=== PATIENT | female | born 1945 | race Caucasian/White ===

== ENCOUNTER 2020-02-12 15:59 | Outpatient (RCR) | payer MEDICARE, OTHER, SELFPAY ==
--- NOTE | 2020-02-12 18:00 | PT.OIE ---
Current Diagnoses Stiffness of unspecified hip, not elsewhere classified (02/12/20) Muscle weakness (generalized) (02/12/20) Stress incontinence (female) (male) (02/12/20) Abnormal posture (02/12/20) Visit Care Team Role Provider Type Cheyanne Barkley PA-C Primary Care Provider Non-Staff Specialty: Nursing Address: [address] [place] [address], [id number] Email: Anuja Caceres MD Attending Provider Non-Staff Referring Provider Specialty: Urology Address: [address] [place] [address], [id number] Email: Physical Therapy Initial Evaluation PT-OP-A Visit Information Start: 02/12/20 13:54 Freq: Status: Active Protocol: Document 02/12/20 16:06 LRN (Rec: 02/12/20 16:54 LRN [id number]) Out-Patient Physical Therapy Visit Information Visit Information Visit Type Initial Evaluation Visit Start Time 16:06 Visit Stop Time 16:53 Total Visit Minutes 47 Visit Number 1 Evaluation Information Evaluation Date 02/12/20 Precautions Precautions Previous bladder implant with removal 06/15/19. Bladder sling 2011 Hx of Botox injections Fell last year and hit side of head and balance has since worsened. Had biopsy at ankle 01/27/2020 to see what may be a reason for LOB problems. PT-OP-B Current Condition Start: 02/12/20 13:54 Freq: Status: Active Protocol: Document 02/12/20 16:06 LRN (Rec: 02/12/20 16:54 LRN [id number]) Current Condition History of Current Condition Onset Date 20 yrs ago Current Complaints Urinary and fecal incontinence requires daily diaper with 2- 3 pad changes History of Current Condition Leaks urgency 4x/day and 1 fecal accident 1x/week. 1 diaper a day with 2-3 pad changes in diaper /day for both urine and stool leakage. Just completed bladder medication of unknown name 1 week ago for urgency of urine with good results. The medication has prevented her urine & stool leakage since use. Problem with it is it gives her dry mouth even worse than what her usual medications cause. Prior Treatments and Tests See below Developmental History. Future Testing and Treatments Planned Dr. Caceres appt on 02/25/2020 . Developmental History Developmental History Has had bladder problem of not able to maintain urine control for past 20 yrs. Has had 2 children vaginally without complication. Had interstim in the back to prevent frequent urination ( temp implant 10/23/13) with permanent implant 11/06/2013, removal 06/15/19. BOTOX x 2 with last 05/10/13. Bladder sling with mesh 2011. Bladder surgery 2003 Treatment Goals Patient/Caregiver Goals Pt goal is to: 1) Complete referral by Dr. Caceres. 2) Take urgency away, 3) Take away the lack of control of bladder. Pt states she does not feel therapy will help because of her longstanding history of the problem. Prior Functional Status Baseline Function- ADL's Independent Baseline Function- Mobility Independent Baseline Function- Gait Ambs with SPC due to balance problem. Current Functional Impairments (Reported) Functional Limitations- ADL's Without medications requires 1 diaper daily 18/04. Functional Limitations- Mobility/Gait Ambulates with SPC Personal Factors Other Personal Factors That May Effect Asthma Therapy/Recovery Arthritis PT-OP-C Subjective Start: 02/12/20 13:54 Freq: Status: Active Protocol: Document 02/12/20 16:06 LRN (Rec: 02/12/20 16:54 LRN [id number]) Patient Questionnaires Pelvic Pain and Urgency/Frequency Patient Symptom Scale Pelvic Pain Score 111 PT-OP-G Mobility & Gait Start: 02/12/20 13:54 Freq: Status: Active Protocol: Document 02/12/20 16:06 LRN (Rec: 02/12/20 20:27 LRN [id number]) OP Gait Assessment Gait Gait Assistance Required: Independent Distance (Feet) 100 Able to Maintain Weight Bearing Status Yes During Gait Assistive Devices Assistive Device Straight Cane Gait Deviations General Gait Pattern Decreased Stride Length, Lateral Trunk Lean Factors Limiting Gait Function Factors Limiting Gait Function Poor Balance PT-OP-I Pelvic Floor Start: 02/12/20 13:54 Freq: Status: Active Protocol: Document 02/12/20 16:06 LRN (Rec: 02/12/20 20:27 LRN [id number]) Pelvic Floor Assessment Urine Pelvic Floor Surgery Yes Urinary Symptoms Urge Sensation,Prolapse Leakage Cause Cough,Urge Other Leakage Causes Unsure, pt wears adult brief 24/7 Leaks Per Day 4 Nocturia 0-1 Pads Used In 24 Hours 2-3 Urine Pad Type Maxi Pad,Depends Bowel Bowel Surgery No Bowel Symptoms Fecal Leakage Pelvic Clock Pelvic Clock Other Tender at Perineum Prolapse Cystocele Grade 1 Contraction Ability Voluntary Contraction Weak Voluntary Relaxation Weak Manual Muscle Testing Left 1 Manual Muscle Testing Right 0 Manual Muscle Testing Posterior 2 Muscle Endurance (Seconds) 1 Number of Quick Contractions In 10 3 Seconds Comments Pelvic Floor Comments Superficial contraction: Anteriorly Deep Contraction: Very weak, no pulling-in contraction felt . PT-OP-K Range of Motion Start: 02/12/20 13:54 Freq: Status: Active Protocol: Document 02/12/20 16:06 LRN (Rec: 02/12/20 16:54 LRN [id number]) Hip Goniometric Range of Motion Hip Right Passive Testing Position Supine Straight Leg Raise 90 Abduction 45 Internal Rotation 35 External Rotation 75 Left Passive Testing Position Supine Flexion w/Knee Flexed 0 Straight Leg Raise 90 Abduction 45 Internal Rotation 30 External Rotation 65 PT-OP-M Strength Start: 02/12/20 13:54 Freq: Status: Active Protocol: Document 02/12/20 16:06 LRN (Rec: 02/12/20 16:54 LRN [id number]) Trunk Strength Trunk Manual Muscle Testing Rotation Left 3 Fair Core Stabilization Pt unable to maintain core stability with R hip extension resistance applied. Comments Trunk strength was not formally tested. Hip Strength Hip Manual Muscle Testing Right Flexion (L2) 4+ Good+ Adduction 3 Fair External Rotation 4 Good Comments Hip strength 5/5 except those above Left Flexion (L2) 4 Good External Rotation 3 Fair Comments Hip strength 5/5 except those above PT-OP-Q Treatments Start: 02/12/20 13:54 Freq: Status: Active Protocol: Document 02/12/20 16:06 LRN (Rec: 02/12/20 16:54 LRN [id number]) Therapeutic Exercises Supine Exercises Kegels Supine Exercise Name Quick Flicks and Long holds Comments Primarily verbal cuing given Self-Care/Home Management Treatment Education Patient Education Home Exercise Program Other Education Issued handouts and instructions for completion of bladder diary. Activities Self-Care/Home Management Activities Issued & brief instructions given for Kegels. PT-OP-T Assessment and Plan Start: 05/19/20 13:54 Freq: Status: Active Protocol: Document 02/12/20 16:06 LRN (Rec: 02/12/20 16:54 LRN [id number]) Physical Therapy Assessment Rehab Potential Rehabilitation Potential Fair Evaluation Complexity Number of Personal Factors/Comorbidities 3 or More Number of Body Systems Impaired 4 or More Clinical Presentation at Evaluation Evolving Impairments Impairments Balance,Posture,ROM,Strength Other Impairments Incoordination of PF contraction with need for substitute muscles to obtain a contraction. Poor PF skin health causing redness and discomfort. Goals Seven Impairment Poor coordination of PF contraction with breathing Short Term Goal (STG) Pt will be able to perform a PF contraction with proper breathing at rest. STG Duration 04/01/20 Utility Manager Goal (LTG) Pt will be able to perform a PF contraction with proper breathing with transfers and voiding. LTG Duration 06/11/20 Six Impairment Decreased hip strength (R hip AD 3/5, L hip ER 3/5) Jail Goal (LTG) Pt will demonstrate improved hip strength generally to no less than 4/5 to improve stability of PF/core region. LTG Duration 06/11/20 Five Impairment Decreased Core stability Jail Goal (LTG) Pt will be able to maintain core stability with resistive strengthening of hips ( extension). LTG Duration 06/11/20 Four Impairment Pt not able to perform an isolated PF contraction(uses gluteals/abdominals) Short Term Goal (STG) Pt will be able to perform and isolated PF contraction with minimal use of abdominal muscle and independent of gluteal muscle contractions. STG Duration 03/18/20 Three Impairment Decreased PF endurance and strength of contractions Short Term Goal (STG) Pt will be able to hold a proper PF contraction 4 sec's or greater. STG Duration 04/01/20 Utility Manager Goal (LTG) Pt will be able to hold a PF contraction 10 secs or more and be able to decrease use of her adult diaper to use of urinary incontinence pads only . LTG Duration 06/11/20 Two Impairment Decreased PF strength Quick Flicks Short Term Goal (STG) Pt will be able to perform proper PF quick flick contractions. STG Duration 03/11/20 Jail Goal (LTG) Pt will demonstrated improved PF strength of at least 3/5 with ability to maintain continence with increased intra-abdominal pressure (ex - coughing, sneezing, transfers ). LTG Duration 06/11/20 One Impairment Pt lacks appropriate self care HEP Utility Manager Goal (LTG) Pt will be independent in ongoing self care HEP LTG Duration 06/11/20 Assessment Summary Assessment Pt presents with a poor coordinated PF contraction and weakness of her PF both in strength and endurance. She tends to try and substitute with her abdominals and gluteal muscles when saida her pelvic floor. She has a muscle imbalance of her hip muscles in strength and mobility and shows weakness of her trunk/core muscles. Her PF tissues are red and tender, probably due to constant wear of her adult diaper. I would recommend this be addressed. The pt would benefit from skilled physical therapy rehabilitation to decreased symptoms of urinary and fecal incontinence. There is good potential for the pt to improve in her PF strength and endurance; therefore I would recommend allowing her to complete her PF rehabilitation prior to Botox injections, in order to maximize her success in retraining the bladder. The pt may also benefit from a referral for a vestibular assessment and balance training, here at our clinic, for her balance dysfunction. Physical Therapy Plan Frequency and Duration Frequency of Treatment 1x/Week Plan of Care Start Date 02/12/20 Plan of Care End Date 06/11/20 Therapeutic Interventions Therapeutic Interventions Coordination Training,Gait Training,Home Exercise Program ,Manual Therapy,Neuromuscular Re-education,Patient/Caregiver Education,Self-Care/Home Management,Soft Tissue Mobilization,Therapeutic Exercises Modalities Biofeedback,Electric Stimulation Next Visit Focus/Plan Next Note Type Treatment Note Next Visit Plan Review of bladder diary with recommended modifications as appropriate, PF contraction training without substitute ms and proper breathing, Discuss proper body mechanics and breathing techniques, Training for proper PF contraction coordination/ sequencing, Hip ROM/Strengthening HEP.
--- NOTE | 2020-05-06 09:29 | PT.OPDS ---
Current Diagnoses Stiffness of unspecified hip, not elsewhere classified (02/12/20) Muscle weakness (generalized) (02/12/20) Stress incontinence (female) (male) (02/12/20) Abnormal posture (02/12/20) Visit Care Team Role Provider Type Cheyanne Barkley PA-C Primary Care Provider Non-Staff Specialty: Nursing Address: [address] [place] [address], [id number] Email: Anuja Caceres MD Attending Provider Non-Staff Referring Provider Specialty: Urology Address: [address] [place] [address], [phone] Email: Visit Number Visit Number 1 Discharge Summary PT-OP-B Current Condition Start: 02/12/20 13:54 Freq: Status: Active Protocol: Document 02/12/20 16:06 LRN (Rec: 02/12/20 16:54 LRN [id number]) Current Condition History of Current Condition Onset Date 20 yrs ago Current Complaints Urinary and fecal incontinence requires daily diaper with 2- 3 pad changes History of Current Condition Leaks urgency 4x/day and 1 fecal accident 1x/week. 1 diaper a day with 2-3 pad changes in diaper /day for both urine and stool leakage. Just completed bladder medication of unknown name 1 week ago for urgency of urine with good results. The medication has prevented her urine & stool leakage since use. Problem with it is it gives her dry mouth even worse than what her usual medications cause. Prior Treatments and Tests See below Developmental History. Future Testing and Treatments Planned Dr. Caceres appt on 02/25/2020 . Developmental History Developmental History Has had bladder problem of not able to maintain urine control for past 20 yrs. Has had 2 children vaginally without complication. Had interstim in the back to prevent frequent urination ( temp implant 10/23/13) with permanent implant 11/06/2013, removal 06/15/19. BOTOX x 2 with last 05/10/13. Bladder sling with mesh 2011. Bladder surgery 2003 Treatment Goals Patient/Caregiver Goals Pt goal is to: 1) Complete referral by Dr. Caceres. 2) Take urgency away, 3) Take away the lack of control of bladder. Pt states she does not feel therapy will help because of her longstanding history of the problem. Prior Functional Status Baseline Function- ADL's Independent Baseline Function- Mobility Independent Baseline Function- Gait Ambs with SPC due to balance problem. Current Functional Impairments (Reported) Functional Limitations- ADL's Without medications requires 1 diaper daily 24/7. Functional Limitations- Mobility/Gait Ambulates with SPC Personal Factors Other Personal Factors That May Effect Asthma Therapy/Recovery Arthritis PT-OP-C Subjective Start: 02/12/20 13:54 Freq: Status: Active Protocol: Document 02/12/20 16:06 LRN (Rec: 02/12/20 16:54 LRN [id number]) Patient Questionnaires Pelvic Pain and Urgency/Frequency Patient Symptom Scale Pelvic Pain Score 111 PT-OP-G Mobility & Gait Start: 02/12/20 13:54 Freq: Status: Active Protocol: Document 02/12/20 16:06 LRN (Rec: 02/12/20 20:27 LRN [id number]) OP Gait Assessment Gait Gait Assistance Required: Independent Distance (Feet) 100 Able to Maintain Weight Bearing Status Yes During Gait Assistive Devices Assistive Device Straight Cane Gait Deviations General Gait Pattern Decreased Stride Length, Lateral Trunk Lean Factors Limiting Gait Function Factors Limiting Gait Function Poor Balance PT-OP-I Pelvic Floor Start: 02/12/20 13:54 Freq: Status: Active Protocol: Document 02/12/20 16:06 LRN (Rec: 02/12/20 20:27 LRN [id number]) Pelvic Floor Assessment Urine Pelvic Floor Surgery Yes Urinary Symptoms Urge Sensation,Prolapse Leakage Cause Cough,Urge Other Leakage Causes Unsure, pt wears adult brief 24/7 Leaks Per Day 4 Nocturia 0-1 Pads Used In 24 Hours 2-3 Urine Pad Type Maxi Pad,Depends Bowel Bowel Surgery No Bowel Symptoms Fecal Leakage Pelvic Clock Pelvic Clock Other Tender at Perineum Prolapse Cystocele Grade 1 Contraction Ability Voluntary Contraction Weak Voluntary Relaxation Weak Manual Muscle Testing Left 1 Manual Muscle Testing Right 0 Manual Muscle Testing Posterior 2 Muscle Endurance (Seconds) 1 Number of Quick Contractions In 10 3 Seconds Comments Pelvic Floor Comments Superficial contraction: Anteriorly Deep Contraction: Very weak, no pulling-in contraction felt . PT-OP-K Range of Motion Start: 02/12/20 13:54 Freq: Status: Active Protocol: Document 02/12/20 16:06 LRN (Rec: 02/12/20 16:54 LRN [id number]) Hip Goniometric Range of Motion Hip Right Passive Testing Position Supine Straight Leg Raise 90 Abduction 45 Internal Rotation 35 External Rotation 75 Left Passive Testing Position Supine Flexion w/Knee Flexed 0 Straight Leg Raise 90 Abduction 45 Internal Rotation 30 External Rotation 65 PT-OP-M Strength Start: 02/12/20 13:54 Freq: Status: Active Protocol: Document 02/12/20 16:06 LRN (Rec: 02/12/20 16:54 LRN [id number]) Trunk Strength Trunk Manual Muscle Testing Rotation Left 3 Fair Core Stabilization Pt unable to maintain core stability with R hip extension resistance applied. Comments Trunk strength was not formally tested. Hip Strength Hip Manual Muscle Testing Right Flexion (L2) 4+ Good+ Adduction 3 Fair External Rotation 4 Good Comments Hip strength 5/5 except those above Left Flexion (L2) 4 Good External Rotation 3 Fair Comments Hip strength 5/5 except those above PT-OP-T Assessment and Plan Start: 02/12/20 13:54 Freq: Status: Active Protocol: Document 05/06/20 09:28 MB (Rec: 05/06/20 09:29 MB [id number]) Physical Therapy Plan Discharge Physical Therapy Discharge Reasons No Longer Attending PT Discharge Comments Front office left message for pt to schedule and pt has not called clinic in 3 months. Will d/c PT. Pt should return to doctor for new order if she wishes to con't with PT in the future.
== END 2020-05-06 12:59 ==
LOC: PHYS 15:59
PROVIDERS: PCP Physician Assistant; Referring Provider Urology; Visit Provider Urology
DX: N39.3 Stress incontinence (female) (male) (principal); M62.81 Muscle weakness (generalized); R29.3 Abnormal posture; M25.659 Stiffness of unspecified hip, not elsewhere classified
CPT/HCPCS: 97162; 97535

== ENCOUNTER → 2020-04-23 14:52 | Outpatient (CLI) | payer MEDICARE, OTHER, SELFPAY | PROVIDERS: PCP Physician Assistant; Referring Provider Physician Assistant; Visit Provider Family Medicine | DX: S81.802A Unspecified open wound, left lower leg, initial encounter (principal); R60.0 Localized edema; D89.9 Disorder involving the immune mechanism, unspecified | CPT/HCPCS: 11042; 87070; 87075; 87205; 99203; 99213 ==

== ENCOUNTER → 2020-04-29 14:11 | Outpatient (CLI) | payer MEDICARE, OTHER, SELFPAY | PROVIDERS: PCP Physician Assistant; Referring Provider Physician Assistant; Visit Provider Family Medicine | DX: T81.31XA Disruption of external operation (surgical) wound, not elsewhere classified, initial encounter (principal); S91.302A Unspecified open wound, left foot, initial encounter | CPT/HCPCS: 97607 ==

== ENCOUNTER → 2020-05-01 10:05 | Outpatient (CLI) | payer MEDICARE, OTHER, SELFPAY | PROVIDERS: PCP Physician Assistant; Referring Provider Physician Assistant; Visit Provider Family Medicine | DX: I87.312 Chronic venous hypertension (idiopathic) with ulcer of left lower extremity (principal); L97.822 Non-pressure chronic ulcer of other part of left lower leg with fat layer exposed; D89.9 Disorder involving the immune mechanism, unspecified | CPT/HCPCS: 11042; 87070; 87075; 87205; 97607 ==

== ENCOUNTER → 2020-05-05 10:58 | Outpatient (CLI) | payer MEDICARE, OTHER, SELFPAY | PROVIDERS: PCP Physician Assistant; Referring Provider Physician Assistant; Visit Provider Family Medicine | DX: I87.2 Venous insufficiency (chronic) (peripheral) (principal); L97.822 Non-pressure chronic ulcer of other part of left lower leg with fat layer exposed | CPT/HCPCS: 99213 ==

== ENCOUNTER → 2020-05-08 11:14 | Outpatient (CLI) | payer MEDICARE, OTHER, SELFPAY | PROVIDERS: PCP Physician Assistant; Referring Provider Physician Assistant; Visit Provider Family Medicine | DX: I87.312 Chronic venous hypertension (idiopathic) with ulcer of left lower extremity (principal); L97.823 Non-pressure chronic ulcer of other part of left lower leg with necrosis of muscle; D89.9 Disorder involving the immune mechanism, unspecified | CPT/HCPCS: 11043; 97605 ==

== ENCOUNTER → 2020-05-12 10:56 | Outpatient (CLI) | payer MEDICARE, OTHER, SELFPAY | PROVIDERS: PCP Physician Assistant; Referring Provider Physician Assistant; Visit Provider Family Medicine | DX: I87.2 Venous insufficiency (chronic) (peripheral) (principal); L97.823 Non-pressure chronic ulcer of other part of left lower leg with necrosis of muscle | CPT/HCPCS: 97607 ==

== ENCOUNTER → 2020-05-15 09:35 | Outpatient (CLI) | payer MEDICARE, OTHER, SELFPAY | PROVIDERS: PCP Physician Assistant; Referring Provider Physician Assistant; Visit Provider Family Medicine | DX: I87.312 Chronic venous hypertension (idiopathic) with ulcer of left lower extremity (principal); L97.821 Non-pressure chronic ulcer of other part of left lower leg limited to breakdown of skin; D89.9 Disorder involving the immune mechanism, unspecified | CPT/HCPCS: 11042 ==

== ENCOUNTER → 2020-05-19 09:39 | Outpatient (CLI) | payer MEDICARE, OTHER, SELFPAY | PROVIDERS: PCP Physician Assistant; Referring Provider Physician Assistant; Visit Provider Family Medicine | DX: L97.825 Non-pressure chronic ulcer of other part of left lower leg with muscle involvement without evidence of necrosis (principal); I87.2 Venous insufficiency (chronic) (peripheral) | CPT/HCPCS: 97607 ==

== ENCOUNTER → 2020-05-22 12:16 | Outpatient (CLI) | payer MEDICARE, OTHER, SELFPAY | PROVIDERS: PCP Physician Assistant; Referring Provider Physician Assistant; Visit Provider Family Medicine | DX: I87.312 Chronic venous hypertension (idiopathic) with ulcer of left lower extremity (principal); L97.821 Non-pressure chronic ulcer of other part of left lower leg limited to breakdown of skin; D89.9 Disorder involving the immune mechanism, unspecified | CPT/HCPCS: 15271; 97605; Q4110 ==

== ENCOUNTER → 2020-05-29 11:45 | Outpatient (CLI) | payer MEDICARE, OTHER, SELFPAY | PROVIDERS: PCP Physician Assistant; Referring Provider Physician Assistant; Visit Provider Family Medicine | DX: I87.312 Chronic venous hypertension (idiopathic) with ulcer of left lower extremity (principal); L97.821 Non-pressure chronic ulcer of other part of left lower leg limited to breakdown of skin; D89.9 Disorder involving the immune mechanism, unspecified | CPT/HCPCS: 97607; 99212; 99213 ==

== ENCOUNTER → 2020-06-04 10:19 | Outpatient (CLI) | payer MEDICARE, OTHER, SELFPAY | PROVIDERS: PCP Physician Assistant; Referring Provider Physician Assistant; Visit Provider Family Medicine | DX: I87.312 Chronic venous hypertension (idiopathic) with ulcer of left lower extremity (principal); L97.821 Non-pressure chronic ulcer of other part of left lower leg limited to breakdown of skin; D89.9 Disorder involving the immune mechanism, unspecified | CPT/HCPCS: 15271; 87070; 87075; 87077; 87147; 87186; 87205; 97605; Q4137 ==

== ENCOUNTER → 2020-06-10 11:54 | Outpatient (CLI) | payer MEDICARE, OTHER, SELFPAY | PROVIDERS: PCP Physician Assistant; Referring Provider Physician Assistant; Visit Provider Family Medicine | DX: I87.312 Chronic venous hypertension (idiopathic) with ulcer of left lower extremity (principal); L97.821 Non-pressure chronic ulcer of other part of left lower leg limited to breakdown of skin; D89.9 Disorder involving the immune mechanism, unspecified; B95.7 Other staphylococcus as the cause of diseases classified elsewhere | CPT/HCPCS: 15271; 97605; 99214; Q4137 ==

== ENCOUNTER → 2020-06-17 13:09 | Outpatient (CLI) | payer MEDICARE, OTHER, SELFPAY | PROVIDERS: PCP Physician Assistant; Referring Provider Physician Assistant; Visit Provider Family Medicine | DX: I87.312 Chronic venous hypertension (idiopathic) with ulcer of left lower extremity (principal); L97.821 Non-pressure chronic ulcer of other part of left lower leg limited to breakdown of skin; D89.9 Disorder involving the immune mechanism, unspecified | CPT/HCPCS: 15271; 97607; Q4137 ==

== ENCOUNTER → 2020-06-27 11:05 | Outpatient (CLI) | payer MEDICARE, OTHER, SELFPAY | PROVIDERS: PCP Physician Assistant; Referring Provider Physician Assistant; Visit Provider Family Medicine | DX: I87.2 Venous insufficiency (chronic) (peripheral) (principal); L97.821 Non-pressure chronic ulcer of other part of left lower leg limited to breakdown of skin | CPT/HCPCS: 97607 ==

== ENCOUNTER → 2020-07-03 15:51 | Outpatient (CLI) | payer MEDICARE, OTHER, SELFPAY | PROVIDERS: PCP Physician Assistant; Referring Provider Physician Assistant; Visit Provider Family Medicine | DX: I87.312 Chronic venous hypertension (idiopathic) with ulcer of left lower extremity (principal); L97.821 Non-pressure chronic ulcer of other part of left lower leg limited to breakdown of skin; D89.9 Disorder involving the immune mechanism, unspecified | CPT/HCPCS: 11042; 97607 ==

== ENCOUNTER → 2020-07-11 12:03 | Outpatient (CLI) | payer MEDICARE, OTHER, SELFPAY | PROVIDERS: PCP Physician Assistant; Referring Provider Physician Assistant; Visit Provider Family Medicine | DX: I87.2 Venous insufficiency (chronic) (peripheral) (principal); L97.821 Non-pressure chronic ulcer of other part of left lower leg limited to breakdown of skin | CPT/HCPCS: 99212 ==

== ENCOUNTER → 2020-07-23 11:27 | Outpatient (CLI) | payer MEDICARE, OTHER, SELFPAY | PROVIDERS: PCP Physician Assistant; Referring Provider Physician Assistant; Visit Provider Family Medicine | DX: I87.312 Chronic venous hypertension (idiopathic) with ulcer of left lower extremity (principal); L97.821 Non-pressure chronic ulcer of other part of left lower leg limited to breakdown of skin; D89.9 Disorder involving the immune mechanism, unspecified | CPT/HCPCS: 97597; 99213 ==

== ENCOUNTER → 2020-07-30 15:10 | Outpatient (CLI) | payer MEDICARE, OTHER, SELFPAY | PROVIDERS: PCP Physician Assistant; Referring Provider Physician Assistant; Visit Provider Family Medicine | DX: I87.312 Chronic venous hypertension (idiopathic) with ulcer of left lower extremity (principal); D89.9 Disorder involving the immune mechanism, unspecified; R60.0 Localized edema | CPT/HCPCS: 99213 ==

== ENCOUNTER → 2021-04-01 09:26 | Outpatient (CLI) | payer MEDICARE, OTHER, SELFPAY | PROVIDERS: PCP Physician Assistant; Referring Provider Physician Assistant; Visit Provider Family Medicine | DX: I87.2 Venous insufficiency (chronic) (peripheral) (principal); Z87.891 Personal history of nicotine dependence | CPT/HCPCS: 99212; 99213 ==

== ENCOUNTER → 2021-12-29 12:12 | Outpatient (CLI) | payer MEDICARE, OTHER, SELFPAY ==
--- NOTE | 2021-12-29 | DI.MRI.S_ITS ---
PROCEDURE: MR HEAD/BRAIN WO/W CON INDICATIONS: Trauma, pain TECHNIQUE: Multiplanar multisequential MRI images of the brain were obtained with and without intravenous contrast. COMPARISON: Outside Film, MR, MR BRAIN WITHOUT CONTRAST, 01/31/2020, 7:33. [facility], MR, MR BRAIN WITH CONTRAST, 03/17/2020, 10:12. FINDINGS: Cerebrum, Cerebellum and Brainstem: Moderate cerebral and cerebellar volume loss as well as moderate multifocal hyperintensities in the deep and subcortical white matter present. The diffusion sequence is normal without evidence of acute infarct. No intracranial hemorrhage, mass lesion or midline shift. Basal cisterns and foramen magnum contain appropriate anatomy and vascular flow voids. No evidence of dural or leptomeningeal thickening. Ventricles: Appropriate in size and position. No hydrocephalus. Skull Base: The bony sella, pituitary gland and infundibulum unremarkable. Clivus and craniovertebral relationships are appropriate. Visualized portions of the seventh and eighth cranial nerve complexes and internal auditory canals are within normal limits. Scalp and Calvarium: The scalp is unremarkable. Underlying calvarium has an appropriate marrow signal. Paranasal Sinuses: Visualized portions of the paranasal sinuses are clear. Mastoids: Unremarkable as visualized. No mastoid effusion present. Orbits: The orbits, globes and ocular muscles are unremarkable. IMPRESSION: Moderate atrophy and chronic ischemic change without acute infarct, hemorrhage or mass lesion. No change from the prior exam Approved by: Perico Sanz M.D. on 12/29/2021 at 14:23
== END ==
PROVIDERS: PCP Family Medicine; Referring Provider Family Medicine; Visit Provider Family Medicine
DX: S06.0X0A Concussion without loss of consciousness, initial encounter (principal); R27.9 Unspecified lack of coordination
CPT/HCPCS: 70553; A9579

== ENCOUNTER 2022-12-09 10:16 | Inpatient (IN) | payer MEDICARE, OTHER, SELFPAY ==
[2022-12-09] VITALS (24 sets, daily range): BP systolic 137–191; BP diastolic 67–86; PULSE 57–65; RESP 8–34; TEMP 36.4–37.1; O2SAT 91–98; BMI 26.4; BMI 25.7
--- NOTE | 2022-12-09 10:49 | DI.CT.S_ITS ---
PROCEDURE: CT ANGIO HEAD AND NECK INDICATIONS: dizziness TECHNIQUE: Pre-contrast 4.5 mm thick sections acquired from the foramen magnum to the vertex. After the administration of intravenous contrast, 1 mm thick sections acquired from the aortic arch through the [place]. Post-contrast 4.5 mm thick sections then re-acquired from the foramen magnum to the vertex. 3-dimensional fkawrbp-uyvrkrfjr-uflvinsdng (MIP) and/or volume rendering reformats were acquired of the central intracranial vasculature and neck separately. For radiation dose reduction, the following was used: automated exposure control, adjustment of mA and/or kV according to patient size. COMPARISON: None. FINDINGS: Image quality: Good CSF spaces: Basal cisterns are patent. Lateral ventricles are symmetric. Volume: Vascular calcifications. Periventricular white matter disease is commonly seen with chronic microangiopathy. Volume loss is present. These findings are [id number] Brain: No intracranial hemorrhage. Hyde-white differentiation is grossly maintained. Craniofacial structures: No displaced fracture. Sinuses are clear. Orbits are intact. HEAD ANGIOGRAPHY Anterior circulation: ICAs: Mild calcifications of the cavernous and supraclinoid carotid arteries. ACAs: Normal and symmetric MCAs: Normal and symmetric AComm: No aneurysm Venous sinuses: patent Posterior circulation: Dominance: Slightly left dominant Vertebral arteries: No stenosis or occlusion. No aneurysm. Basilar artery: Diminutive appearing basilar artery, particularly near the tip. There is minimal flow present. This was seen on prior imaging. PComms: Supplied primarily by posterior communicating arteries. parachute supervisor: Unremarkable NECK ANGIOGRAPHY Aortic arch and subclavian arteries: Mild atherosclerotic disease CCAs: No stenosis, occlusion, or aneurysm. ICA origins (by NASCET criteria): Mild bilateral ICA origin calcifications without significant narrowing (less than 50%) ICAs: No stenosis, occlusion or aneurysm. ECAs: Origins are patent. Vertebral arteries: Moderate narrowing at the left vertebral artery origin. Soft tissues: There is a prominent lymph node adjacent to the right upper esophagus. There is also mild nonspecific esophageal wall thickening partially seen. There are parotid calcifications of uncertain etiology. Lung apices: No pneumothorax Bones: Degenerative changes. IMPRESSION: No acute intracranial abnormality on non-contrast head CT. CTA without large vessel occlusion or high-grade stenosis. Suspected chronic diminutive appearance of the distal basilar artery secondary to predominant supply of the bilateral parachute supervisor. This was seen in 2021 imaging. Hfny-sj-jflpuycv atherosclerotic disease. Moderate narrowing of the left vertebral artery origin. If there is high concern for infarct, recommend MRI. Any quantitative measurements of stenosis were performed using NASCET criteria. Dictated by: Dimitri Winters M.D. on 12/09/2022 at 11:40 Approved by: Dimitri Winters M.D. on 12/09/2022 at 11:49
--- NOTE | 2022-12-09 10:50 | ED.DIZZY ---
HPI - Dizziness General Chief Complaint: Dizziness Stated Complaint: Vertigo Time Seen by Provider: 12/09/22 10:48 Source: patient and EMS Mode of arrival: EMS History of Present Illness HPI Narrative: Patient brought in by ambulance from otolaryngology office of Dr. Gilmer Kraus. Patient has history of vertigo. Has had dizziness for the past month daily. She sees him for this complaint. However she went to bed last night with her usual vertigo dizziness. This morning however she felt like she was ?detached ?from her body. There is not been any complaints of slurred speech facial droop or limb numbness tingling or weakness from herself or her . In the past month or last night or today. Prior history of stroke. Patient in no distress at this time. Fast exam is negative Related Data Home Medications Medication Instructions Recorded Confirmed ALBUTEROL (PROVENTIL INHALER) 0.09 mg IH PRN ##0 12/13/11 12/09/22 budesonide-formoterol HFA 160 1 puff INH PRN ##0 12/13/11 12/09/22 mcg-4.5 mcg/actuation aerosol inhaler (Symbicort) trazodone 100 mg tablet 100 mg PO HS ##0 12/15/11 12/09/22 [VITAMIN D ] 2,000 iu PO QDAY ##0 11/17/12 12/10/22 ibuprofen 800 mg tablet 800 mg PO PRN ##0 11/17/12 12/09/22 Previous Rx's Medication Instructions Recorded aspirin 81 mg tablet,delayed 81 mg PO DAILY #30 tabs 12/10/22 release atorvastatin 20 mg tablet (Lipitor) 40 mg PO BEDTIME #60 tabs 12/10/22 cephalexin 500 mg capsule 500 mg PO Q8H #15 caps 12/10/22 meclizine 12.5 mg tablet 12.5 mg PO Q6HR #60 tabs 12/10/22 Allergies Allergy/AdvReac Type Severity Reaction Status Date / Time Sulfa (Sulfonamide Allergy Verified 12/09/22 10:17 Antibiotics) Review of Systems Review of Systems Narrative: GENERAL: negative chills, fatigue, malaise, fever, sweats. HEENT: negative sinus pain, ear pain, sore throat, positive hearing changes RESPIRATORY: negative dyspnea, cough CARDIOVASCULAR: negative chest pain, palpitations GASTROINTESTINAL: negative nausea, vomiting, abdominal pain : negative dysuria, frequency, hematuria MUSCULOSKELETAL: negative muscle or bony pain SKIN: negative rash, skin lesions NEUROLOGIC: negative weakness, numbness, positive dizziness negative slurred speech negative facial droop ROS Unobtainable: All systems reviewed & are unremarkable except as noted in HPI and below Patient History Family History (Updated 12/09/22 @ 16:53 by Luis John MD) Other Family history of cerebrovascular accident (CVA) in father Social History household members: spouse Smoking Status: Never smoker alcohol intake: current Smoking Status: Never smoker alcohol intake frequency: 0-2 drinks per day Substance Use Type: does not use Exam Narrative Exam Narrative: GENERAL: in no distress, not toxic not dyspneic HEAD: Normocephalic. EYES: Pupils equal round there is horizontal nystagmus ENT: Mucous membranes moist. NECK: Trachea midline. CARDIOVASCULAR: Regular rate and rhythm without murmurs RESPIRATORY: Clear to auscultation. Breath sounds equal bilaterally. No wheezes, rales, or rhonchi. GASTROINTESTINAL: Abdomen soft, non-tender EXTREMITIES: No gross deformities. BACK: No flank tenderness. NEURO: AOx4. Fast exam is negative. Clear speech no facial droop light touch intact bilateral face hands and feet. Strong equal overhauler. Negative pronator drift. Finger-nose intact. Elevate each leg independently off the bed SKIN: Warm and dry PSYCH: Not anxious, is cooperative Initial Vital Signs Initial Vital Signs: Vital Signs Temperature 97.6 F 12/09/22 10:18 Pulse Rate 61 12/09/22 10:18 Respiratory Rate 14 12/09/22 10:18 Blood Pressure 191/86 H 12/09/22 10:18 Pulse Oximetry 98 12/09/22 10:18 Oxygen Delivery Method Room Air 12/09/22 10:18 Scores NIH Stroke Scale Level of Conciousness: Alert, keenly responsive Ask month/age: Answers both questions correctly. Open/close eyes, close hand: Performs both tasks correctly Best gaze horizontal: Normal Visual montejo: No visual loss Facial palsy: Normal symetrical movement Left arm drift: No drift for full 10 sec Right arm drift: No drift for full 10 sec Left leg drift: No drift for full 5 sec Right leg drift: No drift for full 5 sec Limb ataxia: Absent Sensory on face/arms/legs: Normal, no sensory loss Best language: No aphasia, normal Dysarthria: Normal Extinction or inattention: No abnormality Total NIH Stroke scale score: 0 Course Orders Ordered: Discontinued Medications Acetaminophen (Acetaminophen 325 Mg Tablet) 650 mg PO Q6H PRN PRN Reason: Fever/Mild Pain (1-3) Al Hydrox/Mg Hydrox/Simethicone (Mag Hydrox/Alum/Simeth 30 Ml Udc) 30 ml PO Q6HR PRN PRN Reason: Dyspepsia Aspirin (Aspirin Ec 81 Mg Tablet) 81 mg PO DAILY [facility] Last Admin: 12/10/22 09:10 Dose: 81 mg Documented By: AA Aspirin (Aspirin Ec 325 Mg Tablet) 325 mg PO NOW ONE Stop: 12/09/22 21:43 Last Admin: 12/09/22 21:56 Dose: 325 mg Documented By: AC Atorvastatin Calcium (Atorvastatin 20 Mg Tablet) 80 mg PO BEDTIME [facility] Last Admin: 12/09/22 21:38 Dose: 80 mg Documented By: AC Cephalexin HCl (Cephalexin 250 Mg Capsule) 500 mg PO NOW ONE Stop: 12/09/22 13:45 Last Admin: 12/09/22 15:15 Dose: 500 mg Documented By: LILIANA Clopidogrel Bisulfate (Clopidogrel 75 Mg Tablet) 75 mg PO DAILY [facility] Last Admin: 12/10/22 09:10 Dose: 75 mg Documented By: GAURANG Docusate Sodium (Docusate 100 Mg Capsule) 100 mg PO BID [facility] Last Admin: 12/10/22 09:10 Dose: 100 mg Documented By: Admin: 12/09/22 21:38 Dose: 100 mg Documented By: AC Heparin Sodium (Porcine) (Heparin 5,000 Unit/Ml Vial) 5,000 unit SUBCUT BID [facility] Last Admin: 12/10/22 09:10 Dose: 5,000 unit Documented By: Admin: 12/09/22 21:38 Dose: 5,000 unit Documented By: AC Ceftriaxone Sodium 1,000 mg/ (Sodium Chloride) 100 mls @ 200 mls/hr IV Q24H [facility] Last Admin: 12/10/22 16:50 Dose: Not Given Documented By: Infusion: 12/09/22 17:40 Dose: 0 mls/hr Documented By: Admin: 12/09/22 17:07 Dose: 200 mls/hr Documented By: HCW Lorazepam (Lorazepam 2 Mg/Ml Inj) 1 mg IV NOW ONE Stop: 12/09/22 12:27 Last Admin: 12/09/22 14:21 Dose: 1 mg Documented By: LILIANA Meclizine HCl (Meclizine Hcl 12.5 Mg Tablet) 12.5 mg PO Q6HR [facility] Last Admin: 12/10/22 13:04 Dose: 12.5 mg Documented By: Admin: 12/10/22 06:33 Dose: 12.5 mg Documented By: Admin: 12/10/22 00:41 Dose: 12.5 mg Documented By: Admin: 12/09/22 18:00 Dose: 12.5 mg Documented By: OLU Naloxone HCl (Naloxone 0.4 Mg/Ml Vial) 0.2 mg IV Q2MIN PRN PRN Reason: Opiate Reversal Ondansetron HCl (Ondansetron 4 Mg/2 Ml Inj) 4 mg IV NOW ONE Stop: 12/09/22 10:49 Last Admin: 12/09/22 11:09 Dose: 4 mg Documented By: HÉCTOR Ondansetron HCl (Ondansetron 4 Mg/2 Ml Inj) 4 mg IV Q8HR PRN PRN Reason: Nausea And Vomiting Vital Signs Vital signs: Vital Signs - 8 hr 12/09/22 10:18 12/09/22 10:20 12/09/22 10:21 Temperature 97.6 F Pulse Rate 61 60 Respiratory Rate 14 11 L Blood Pressure 191/86 H Pulse Oximetry 98 98 97 Oxygen Delivery Method Room Air 12/09/22 10:21 12/09/22 10:30 12/09/22 11:00 Temperature Pulse Rate 61 61 Respiratory Rate 18 26 H Blood Pressure 191/86 H Pulse Oximetry 98 91 Oxygen Delivery Method Room Air 12/09/22 11:03 12/09/22 11:03 12/09/22 11:10 Temperature Pulse Rate 62 59 L Respiratory Rate 17 15 Blood Pressure 172/77 H Pulse Oximetry 96 96 Oxygen Delivery Method 12/09/22 11:10 12/09/22 11:30 12/09/22 12:00 Temperature Pulse Rate 61 59 L Respiratory Rate 18 19 Blood Pressure 148/67 H Pulse Oximetry 97 Oxygen Delivery Method 12/09/22 12:30 12/09/22 13:00 12/09/22 13:30 Temperature Pulse Rate 63 57 L 59 L Respiratory Rate 8 L 14 Blood Pressure Pulse Oximetry Oxygen Delivery Method 12/09/22 14:00 12/09/22 14:17 12/09/22 14:17 Temperature Pulse Rate 60 64 Respiratory Rate 16 19 Blood Pressure 141/73 H Pulse Oximetry 97 Oxygen Delivery Method MDM - Dizziness Lab Data 12/09/22 10:28 12/09/22 17:14 Labs: Lab Results 12/09/22 12/09/22 12/09/22 Range/Units 10:28 10:28 10:28 WBC 5.9 (4.5-11.0) X10^3/uL RBC 4.57 (4.0-5.2) X10^6/uL Hgb 15.0 (12.0-16.0) g/dL Hct 44.1 (36-46) % MCV 96.5 (80-100) fL MCH 32.7 (26-34) PG MCHC 33.9 (30-36) % RDW 12.9 (11.6-14.8) % Plt Count 107 L (150-400) X10^3/uL Neut % (Auto) 65.3 (50-75) % Lymph % (Auto) 22.5 L (25-40) % [place] % (Auto) 6.9 (3-14) % Eos % (Auto) 4.8 H (2-4) % Baso % (Auto) 0.5 (0-2) % Neut # (Auto) 3800 (5983-9626) /uL Lymph # (Auto) 1300 (7741-1755) /uL [place] # (Auto) 400 (0-900) /uL Eos # (Auto) 300 (0-450) /uL Baso # (Auto) 0 (0-100) /uL PT 10.7 (10.1-12.7) SECONDS INR 0.9 (0.9-1.3) APTT 30 (26-36) SECONDS Sodium 136 L (137-145) mmol/L Potassium 4.0 (3.4-5.1) mmol/L Chloride 100 (98-107) mmol/L Carbon Dioxide 31 (22-32) mmol/L BUN 13 (7-17) mg/dL Creatinine 0.65 (0.52-1.04) mg/dL Estimated GFR > 60 (>60) mL/min BUN/Creatinine Ratio 20.0 (6-22) Glucose 92 (80-110) mg/dL Calcium 8.9 (8.4-10.2) mg/dL Total Bilirubin 0.7 (0.2-1.3) mg/dL AST 41 H (14-36) IU/L ALT 37 H (<35) IU/L Alkaline Phosphatase 158 H (38-126) U/L Total Creatine Kinase 38 (30-135) U/L CK-MB (CK-2) TNP CK-MB (CK-2) Rel Index TNP Troponin I < 0.012 (0.01-0.034) ng/mL Total Protein 6.9 (6.3-8.2) g/dL Albumin 4.2 (3.5-5.0) g/dL Globulin 2.7 (1.7-4.1) g/dL Albumin/Globulin Ratio 1.6 (1.0-2.8) Urine Color Urine Appearance Urine pH (4.5-8.0) Ur Specific [place] (1.000-1.035) Urine Protein (Negative) Urine Glucose (UA) (Negative) g/dL Urine Ketones (NEGATIVE) Urine Occult Blood (Negative) Urine Nitrate (Negative) Urine Bilirubin (NEGATIVE) Urine Urobilinogen (0.2) E.U./dL Ur Leukocyte Esterase (NEGATIVE) Urine RBC (0-5/HPF) Urine WBC (0-5/HPF) Ur Squamous Epith Cells (0-5/HPF) Urine Bacteria (None) Ur Culture Indicated? SARS-CoV-2 (PCR) (Negative) Influenza A (RT-PCR) (NEGATIVE) Influenza B (RT-PCR) (NEGATIVE) RSV (PCR) (Negative) 12/09/22 12/09/22 Range/Units 11:56 12:30 WBC (4.5-11.0) X10^3/uL RBC (4.0-5.2) X10^6/uL Hgb (12.0-16.0) g/dL Hct (36-46) % MCV (80-100) fL MCH (26-34) PG MCHC (30-36) % RDW (11.6-14.8) % Plt Count (150-400) X10^3/uL Neut % (Auto) (50-75) % Lymph % (Auto) (25-40) % [place] % (Auto) (3-14) % Eos % (Auto) (2-4) % Baso % (Auto) (0-2) % Neut # (Auto) (2791-5612) /uL Lymph # (Auto) (3599-8025) /uL [place] # (Auto) (0-900) /uL Eos # (Auto) (0-450) /uL Baso # (Auto) (0-100) /uL PT (10.1-12.7) SECONDS INR (0.9-1.3) APTT (26-36) SECONDS Sodium (137-145) mmol/L Potassium (3.4-5.1) mmol/L Chloride (98-107) mmol/L Carbon Dioxide (22-32) mmol/L BUN (7-17) mg/dL Creatinine (0.52-1.04) mg/dL Estimated GFR (>60) mL/min BUN/Creatinine Ratio (6-22) Glucose (80-110) mg/dL Calcium (8.4-10.2) mg/dL Total Bilirubin (0.2-1.3) mg/dL AST (14-36) IU/L ALT (<35) IU/L Alkaline Phosphatase (38-126) U/L Total Creatine Kinase (30-135) U/L CK-MB (CK-2) CK-MB (CK-2) Rel Index Troponin I (0.01-0.034) ng/mL Total Protein (6.3-8.2) g/dL Albumin (3.5-5.0) g/dL Globulin (1.7-4.1) g/dL Albumin/Globulin Ratio (1.0-2.8) Urine Color Yellow Urine Appearance Clear Urine pH 7.5 (4.5-8.0) Ur Specific [place] 1.010 (1.000-1.035) Urine Protein Negative (Negative) Urine Glucose (UA) Negative (Negative) g/dL Urine Ketones Negative (NEGATIVE) Urine Occult Blood Negative (Negative) Urine Nitrate Positive H (Negative) Urine Bilirubin Negative (NEGATIVE) Urine Urobilinogen 0.2 (0.2) E.U./dL Ur Leukocyte Esterase Negative (NEGATIVE) Urine RBC None seen (0-5/HPF) Urine WBC None seen (0-5/HPF) Ur Squamous Epith Cells None seen (0-5/HPF) Urine Bacteria Many (>30) H (None) Ur Culture Indicated? Specimen cultured SARS-CoV-2 (PCR) Negative (Negative) Influenza A (RT-PCR) Flu a negative (NEGATIVE) Influenza B (RT-PCR) Flu b negative (NEGATIVE) RSV (PCR) Negative (Negative) Point of Care Testing Glucose POC 82 Imaging Data mri brain: Radiologist's Impression: PROCEDURE:? MR HEAD/BRAIN WO CON ? INDICATIONS:? Dizziness ? TECHNIQUE:? Noncontrast axial T1 spin echo, axial T2 fast spin echo, sagittal and axial FLAIR, coronal T2 fast spin echo, axial gradient echo, axial diffusion and ADC through the brain.? ? COMPARISON:? [facility], MR, MR HEAD/BRAIN WO/W CON, 12/29/2021, 12:20.? [facility], CT, CT ANGIO HEAD AND NECK, 12/09/2022, 11:18. ? FINDINGS:? Image quality: Excellent ? CSF spaces: Basal cisterns are patent. Lateral ventricles are symmetric. Volume:? Volume loss. Periventricular white matter signal abnormality most commonly seen with small vessel disease. These findings are [id number].? There is some involvement of subcortical U fibers.? ? Brain:? Punctate infarct in the right frontal lobe in the subcortical region ().? No acute hemorrhage. ? Craniofacial structures: No displaced fracture. Sinuses are clear. Orbits are intact. ? IMPRESSION:? A punctate infarct is seen in the right frontal lobe subcortical region, possibly micro embolic.? () ? Correlate clinically for a possible source.? If the patient has any personal history of malignancy, consider also follow-up imaging. ? Chronic findings as above.? ? ? Dictated by: Dimitri Winters M.D. on 12/09/2022 at 15:36 ? ? Approved by: Dimitri Winters M.D. on 12/09/2022 at 15:41 ? CTA - brain/neck: Radiologist's Impression: PROCEDURE:? CT ANGIO HEAD AND NECK ? INDICATIONS:? dizziness ? TECHNIQUE:? Pre-contrast 4.5 mm thick sections acquired from the foramen magnum to the vertex.? After the administration of intravenous contrast, 1 mm thick sections acquired from the aortic arch through the [place].? Post-contrast 4.5 mm thick sections then re-acquired from the foramen magnum to the vertex.? 3-dimensional xgapoiv-znvjodain-rhcqvhbemj (MIP) and/or volume rendering reformats were acquired of the central intracranial vasculature and neck separately. For radiation dose reduction, the following was used:? automated exposure control, adjustment of mA and/or kV according to patient size.? ? COMPARISON:? None. ? FINDINGS:? Image quality:? Good ? CSF spaces: Basal cisterns are patent. Lateral ventricles are symmetric. Volume:? Vascular calcifications. Periventricular white matter disease is commonly seen with chronic microangiopathy. Volume loss is present. These findings are [id number]-[id number] ? ? Brain: No intracranial hemorrhage. Hyde-white differentiation is grossly maintained. ? Craniofacial structures: No displaced fracture. Sinuses are clear. Orbits are intact. ? HEAD ANGIOGRAPHY Anterior circulation: ICAs:? Mild calcifications of the cavernous and supraclinoid carotid arteries. ACAs: Normal and symmetric MCAs: Normal and symmetric AComm: No aneurysm Venous sinuses: patent ? Posterior circulation: Dominance:? Slightly left dominant Vertebral arteries: No stenosis or occlusion. No aneurysm. Basilar artery:? Diminutive appearing basilar artery, particularly near the tip.? There is minimal flow present.? This was seen on prior imaging. PComms:? Supplied primarily by posterior communicating arteries. 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 NECK ANGIOGRAPHY Aortic arch and subclavian arteries:? Mild atherosclerotic disease CCAs: No stenosis, occlusion, or aneurysm. ICA origins (by NASCET criteria):? Mild bilateral ICA origin calcifications without significant narrowing (less than 50%) ICAs: No stenosis, occlusion or aneurysm. ECAs: Origins are patent. Vertebral arteries:? Moderate narrowing at the left vertebral artery origin. ? Soft tissues:? There is a prominent lymph node adjacent to the right upper esophagus.? There is also mild nonspecific esophageal wall thickening partially seen.? There are parotid calcifications of uncertain etiology. Lung apices: No pneumothorax Bones:? Degenerative changes. ? ? IMPRESSION:? No acute intracranial abnormality on non-contrast head CT. ? CTA without large vessel occlusion or high-grade stenosis.? 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 This was seen in 2021 imaging. ? [id number] atherosclerotic disease.? Moderate narrowing of the left vertebral artery origin. ? If there is high concern for infarct, recommend MRI. ? Any quantitative measurements of stenosis were performed using NASCET criteria.? ? ? Dictated by: Dimitri Winters M.D. on 12/09/2022 at 11:40 ? ? Approved by: Dimitri Winters M.D. on 12/09/2022 at 11:49 ? MDM Narrative Medical decision making narrative: Patient brought in by ambulance from otolaryngology office of Dr. Gilmer Kraus. Patient has history of vertigo. Has had dizziness for the past month daily. She sees him for this complaint. However she went to bed last night with her usual vertigo dizziness. This morning however she felt like she was ?detached ?from her body. There is not been any complaints of slurred speech facial droop or limb numbness tingling or weakness from herself or her . In the past month or last night or today. Prior history of stroke. Patient in no distress at this time. Fast exam is negative After history and exam CBC CMP troponin EKG CT angiogram head and neck ordered. Normal saline [facility] CC: Dizziness Complicating co-morbidities: History of vertigo Data collected from: Patient Medical records reviewed: Patient not seen here before for this complaint Differential considered: Includes but not limited to stroke/TIA/cerebellar infarct/vertigo/labyrinthitis Exam documented above, pertinent findings include: Horizontal nystagmus Lab Test results independently reviewed as above. Pertinent findings: Independently reviewed EKG as above sinus bradycardia rate [address] elevation or depression Imaging studies independently reviewed: CT angio head and neck no acute process MRI, subacute infarct right frontal lobe Consultations: Spoke with hospitalist, Dr. John, he will admit. Treatments: Normal saline. Re-evaluations: 3:58 p.m.. Reviewed with patient and results of MRI, subacute infarct finding. Right frontal lobe. They agree and understand need for admit. Patient in no distress Discussion: Appropriate for admission. No tPA at this time. Patient outside window of tPA. No large vessel occlusion. No endovascular intervention needed. Diagnosis: Subacute stroke Discharge Plan Departure Patient Disposition: Admitted as Observation Clinical Impression: Stroke Admit Date/Time: 12/09/22 15:57 Admit Provider: Luis John
[2022-12-09 10:56] LABS: Add Manual Diff / Slide Review NO; Basophils Absolute Auto 0 /uL (0-100); Basophils Percent Auto 0.5 % (0-2); Eosinophils Absolute Auto 300 /uL (0-450); Eosinophils Percent Auto 4.8 % (2-4); Hematocrit 44.1 % (36-46); Lymphocytes Absolute Auto 1300 /uL (1100-4500); Lymphocytes Percent Auto 22.5 % (25-40); Mean Corpuscular HGB Conc 33.9 % (30-36); Mean Corpuscular Hemoglobin 32.7 PG (26-34); Mean Corpuscular Volume 96.5 fL (80-100); Monocytes Absolute Auto 400 /uL (0-900); Monocytes Percent Auto 6.9 % (3-14); Neutrophils Absolute Auto 3800 /uL (1500-7000); Neutrophils Percent Auto 65.3 % (50-75); Platelet Count 107 X10^3/uL (150-400); Red Blood Cell Count 4.57 X10^6/uL (4.0-5.2); Red Cell Distribution Width 12.9 % (11.6-14.8); White Blood Cell Count 5.9 X10^3/uL (4.5-11.0)
[2022-12-09 10:57] LABS: INR 0.9 (0.9-1.3); Prothrombin Time 10.7 SECONDS (10.1-12.7)
[2022-12-09 11:00] LABS: PTT Partial Thromboplastin Tim 30 SECONDS (26-36)
[2022-12-09 11:02] LABS: Alanine Aminotransferase 37 IU/L (<35); Albumin 4.2 g/dL (3.5-5.0); Albumin Globulin Ratio 1.6 (1.0-2.8); Alkaline Phosphatase 158 U/L (38-126); Aspartate Aminotransferase 41 IU/L (14-36); Bilirubin Total 0.7 mg/dL (0.2-1.3); Blood Urea Nitrogen 13 mg/dL (7-17); Calcium 8.9 mg/dL (8.4-10.2); Carbon Dioxide 31 mmol/L (22-32); Chloride 100 mmol/L (98-107); Creatine Kinase 38 U/L (30-135); Estimated Glomerular Filt Rate > 60 mL/min (>60); Globulin 2.7 g/dL (1.7-4.1); Glucose 92 mg/dL (80-110); HEMOLYSIS < 15 (0-50); Sodium 136 mmol/L (137-145); Total Protein 6.9 g/dL (6.3-8.2)
[2022-12-09] MEDS: ONDANSETRON 4 MG/2 ML INJ IV (11:09)
[2022-12-09 11:13] LABS: Troponin I < 0.012 ng/mL (0.01-0.034)
--- NOTE | 2022-12-09 11:40 | DI.MRI.S_ITS ---
PROCEDURE: MR HEAD/BRAIN WO CON INDICATIONS: Dizziness TECHNIQUE: Noncontrast axial T1 spin echo, axial T2 fast spin echo, sagittal and axial FLAIR, coronal T2 fast spin echo, axial gradient echo, axial diffusion and ADC through the brain. COMPARISON: [facility], MR, MR HEAD/BRAIN WO/W CON, 12/29/2021, 12:20. [facility], CT, CT ANGIO HEAD AND NECK, 12/09/2022, 11:18. FINDINGS: Image quality: Excellent CSF spaces: Basal cisterns are patent. Lateral ventricles are symmetric. Volume: Volume loss. Periventricular white matter signal abnormality most commonly seen with small vessel disease. These findings are [id number]. There is some involvement of subcortical U fibers. Brain: Punctate infarct in the right frontal lobe in the subcortical region (). No acute hemorrhage. Craniofacial structures: No displaced fracture. Sinuses are clear. Orbits are intact. IMPRESSION: A punctate infarct is seen in the right frontal lobe subcortical region, possibly micro embolic. () Correlate clinically for a possible source. If the patient has any personal history of malignancy, consider also follow-up imaging. Chronic findings as above. Dictated by: Dimitri Winters M.D. on 12/09/2022 at 15:36 Approved by: Dimitri Winters M.D. on 12/09/2022 at 15:41
[2022-12-09 12:15] LABS: Appearance Urine UA CLEAR; Bilirubin Urine UA NEGATIVE (NEGATIVE); Color Urine UA YELLOW; Glucose Urine UA NEGATIVE (Negative); Ketones Urine UA NEGATIVE (NEGATIVE); Leukocyte Esterase Urine UA NEGATIVE (NEGATIVE); Nitrite Urine UA POSITIVE (Negative); Occult Blood Urine UA NEGATIVE (Negative); Protein Urine UA NEGATIVE (Negative); Urobilinogen Urine UA 0.2 E.U./dL (0.2)
[2022-12-09 12:16] LABS: pH Urine UA 7.5 (4.5-8.0)
[2022-12-09 12:22] LABS: Bacteria Urine Many (>30); Culture Indicated Urine Specimen Cultured; RBC Urine None Seen (0-5/HPF); Squamous Epithelial Cell Urine None Seen (0-5/HPF); WBC Urine None Seen (0-5/HPF)
[2022-12-09 13:12] LABS: COVID-19 CEPHEID 4-PLEX PCR Negative (Negative); Influenza A - CEPHEID Flu A NEGATIVE (NEGATIVE); Influenza B - CEPHEID Flu B NEGATIVE (NEGATIVE); Respiratory Syncytial Virus Negative (Negative)
[2022-12-09] MEDS: LORazepam 2 MG/ML INJ 1 MG IV (14:21)
[2022-12-09] MEDS: cephALEXin 250 MG CAPSULE 500 MG PO (15:15)
--- NOTE | 2022-12-09 16:50 | P.HP_ITS ---
History of Present Illness History of Present Illness Date Patient Seen: 12/09/22 Time Patient Seen: 16:00 Chief complaint: Vertigo Narrative: The patient is a 77-year-old female who describes a 1-2 month history of vertigo and bilateral hearing loss. She is being followed by Dr. Kraus, ENT. The placed on a trial of steroids to see if this improved. These were recently stopped. Said she awoke today feeling dissociated from her body and that she had vertigo and a headache her was at work, she drove herself to her prescheduled ENT appointment. There she was referred to the emergency department. In the emergency department she denied any weakness or numbness of arms or legs, or diplopia. She also denies tinnitus. The patient underwent stat CT which was negative for evidence of acute acute bleed. An MRI revealed a subacute frontal infarct. The patient notes that all relatively normal through yesterday but has not been feeling normal since waking this morning. Again she or other neurologic changes. Her speech is normal. The platelet therapy on a there is no specific working diagnosis for her hearing loss and vertigo. She has not been a vertigo she was diagnosed with a possible urinary tract infection in the emergency department, although she denies urinary symptoms. She was started on antibiotics. Patient History Family & Social History Family History (Updated 12/09/22 @ 16:53 by Luis John MD) Other Family history of cerebrovascular accident (CVA) in father Social History: The patient lives at [facility] with her . She quit smoking 20 years ago and has about a 42 year history of smoking. She alcohol very rarely. Safety & Behavioral: Feels Safe in Current Yes Environment Tobacco & Substance use: Smoking Status Never smoker alcohol intake frequency 0-2 drinks per day Substance Use Type does not use Meds Home Medications and Allergies Home Medications Medication Instructions Recorded Confirmed Type ALBUTEROL (PROVENTIL INHALER) 0.09 mg IH PRN ##0 12/13/11 History budesonide-formoterol HFA 160 1 puff INH PRN ##0 12/13/11 History mcg-4.5 mcg/actuation aerosol inhaler (Symbicort) DOXYCYCLINE HYCLATE (Doxycycline 100 mg PO Q12H ##0 12/15/11 History Hyclate) [FLAXSEED] 3,000 mg PO QDAY ##0 12/15/11 History trazodone 100 mg tablet 100 mg PO HS ##0 12/15/11 History [ASTHMACORT] INH BID ##0 11/17/12 History [C-SERUM] gtt OU QID ##0 11/17/12 History [GENTEAL] ophth OU HS ##0 11/17/12 History [PREDNISOLONE] gtt OU QID ##0 11/17/12 History [VITAMIN D ] 2,000 iu PO QDAY ##0 11/17/12 History acyclovir 200 mg capsule (Zovirax) 200 mg PO BID ##0 11/17/12 History ibuprofen 800 mg tablet 800 mg PO PRN ##0 11/17/12 History sertraline 50 mg tablet (Zoloft) 50 mg PO HS ##0 11/17/12 History Allergies Allergy/AdvReac Type Severity Reaction Status Date / Time Sulfa (Sulfonamide Allergy Verified 12/09/22 10:17 Antibiotics) Review of Systems Review of Systems Narrative: She denies visual changes, or diplopia. No speech difficulty. No recent fevers, or chills. No URI symptoms. No nausea, or diarrhea. No urinary symptoms. All else reviewed an otherwise unremarkable. Exam Vital Signs (past 8 hours): - 12/09/22 10:18 12/09/22 10:20 12/09/22 10:21 Temperature 97.6 F Pulse Rate 61 60 Respiratory Rate 14 11 L Blood Pressure 191/86 H Pulse Oximetry 98 98 97 Oxygen Delivery Method Room Air 12/09/22 10:21 12/09/22 10:30 12/09/22 11:00 Temperature Pulse Rate 61 61 Respiratory Rate 18 26 H Blood Pressure 191/86 H Pulse Oximetry 98 91 Oxygen Delivery Method Room Air 12/09/22 11:03 12/09/22 11:03 12/09/22 11:10 Temperature Pulse Rate 62 59 L Respiratory Rate 17 15 Blood Pressure 172/77 H Pulse Oximetry 96 96 Oxygen Delivery Method 12/09/22 11:10 12/09/22 11:30 12/09/22 12:00 Temperature Pulse Rate 61 59 L Respiratory Rate 18 19 Blood Pressure 148/67 H Pulse Oximetry 97 Oxygen Delivery Method 12/09/22 12:30 12/09/22 13:00 12/09/22 13:30 Temperature Pulse Rate 63 57 L 59 L Respiratory Rate 8 L 14 Blood Pressure Pulse Oximetry Oxygen Delivery Method 12/09/22 14:00 12/09/22 14:17 12/09/22 14:17 Temperature Pulse Rate 60 64 Respiratory Rate 16 19 Blood Pressure 141/73 H Pulse Oximetry 97 Oxygen Delivery Method 12/09/22 14:57 12/09/22 15:00 12/09/22 15:30 Temperature Pulse Rate 65 63 62 Respiratory Rate 11 L 29 H Blood Pressure Pulse Oximetry 97 98 93 Oxygen Delivery Method 12/09/22 16:00 12/09/22 16:30 12/09/22 16:36 Temperature Pulse Rate 63 65 61 Respiratory Rate 32 H 34 H 25 H Blood Pressure Pulse Oximetry 95 95 95 Oxygen Delivery Method 12/09/22 16:36 Temperature Pulse Rate Respiratory Rate Blood Pressure 159/70 H Pulse Oximetry Oxygen Delivery Method Oxygen Delivery Method Room Air Narrative Exam Narrative: She is alert oriented x3, no acute distress. Fluent speech and normal judgment. Head reveals symmetric pupils, EOMI. No diplopia. No nystagmus. Neck is supple, no adenopathy. Normal thyroid. No range of motion. Lungs Are clear with normal rate and effort. Heart is regular without murmur gallop or rub. Referral pulses. Abdomen is soft, nontender, no organomegaly Extremities are free of edema, good peripheral pulses. Skin is free of rash, lesions or petechiae. Joints are not swollen or deformed. Judgment and speech are normal. Neurologically cranial nerves are intact. Motor strength is 5/5 all extremities. Objective ECG Impression: NSR Imaging CT scan - head: Radiologist's impression: No acute abnormalities, or bleed. Labs 12/09/22 10:28 12/09/22 10:28 Labs: Laboratory Results - last 24 hr 12/09/22 12/09/22 12/09/22 10:28 10:28 10:28 WBC 5.9 RBC 4.57 Hgb 15.0 Hct 44.1 MCV 96.5 MCH 32.7 MCHC 33.9 RDW 12.9 Plt Count 107 L Neut % (Auto) 65.3 Lymph % (Auto) 22.[address] [place] % (Auto) 6.9 Eos % (Auto) 4.8 H Baso % (Auto) 0.5 Neut # (Auto) 3800 Lymph # (Auto) [address] [place] # (Auto) 400 Eos # (Auto) 300 Baso # (Auto) 0 PT 10.7 INR 0.9 APTT 30 Sodium 136 L Potassium 4.0 Chloride 100 Carbon Dioxide 31 BUN 13 Creatinine 0.65 Estimated GFR > 60 BUN/Creatinine Ratio 20.0 Glucose 92 Calcium 8.9 Total Bilirubin 0.7 AST 41 H ALT 37 H Alkaline Phosphatase 158 H Total Creatine Kinase 38 CK-MB (CK-2) TNP CK-MB (CK-2) Rel Index TNP Troponin I < 0.012 Total Protein 6.9 Albumin 4.2 Globulin 2.7 Albumin/Globulin Ratio 1.6 Urine Color Urine Appearance Urine pH Ur Specific [place] Urine Protein Urine Glucose (UA) Urine Ketones Urine Occult Blood Urine Nitrate Urine Bilirubin Urine Urobilinogen Ur Leukocyte Esterase Urine RBC Urine WBC Ur Squamous Epith Cells Urine Bacteria Ur Culture Indicated? SARS-CoV-2 (PCR) Influenza A (RT-PCR) Influenza B (RT-PCR) RSV (PCR) 12/09/22 12/09/22 11:56 12:30 WBC RBC Hgb Hct MCV MCH MCHC RDW Plt Count Neut % (Auto) Lymph % (Auto) [place] % (Auto) Eos % (Auto) Baso % (Auto) Neut # (Auto) Lymph # (Auto) [place] # (Auto) Eos # (Auto) Baso # (Auto) PT INR APTT Sodium Potassium Chloride Carbon Dioxide BUN Creatinine Estimated GFR BUN/Creatinine Ratio Glucose Calcium Total Bilirubin AST ALT Alkaline Phosphatase Total Creatine Kinase CK-MB (CK-2) CK-MB (CK-2) Rel Index Troponin I Total Protein Albumin Globulin Albumin/Globulin Ratio Urine Color Yellow Urine Appearance Clear Urine pH 7.5 Ur Specific [place] 1.010 Urine Protein Negative Urine Glucose (UA) Negative Urine Ketones Negative Urine Occult Blood Negative Urine Nitrate Positive H Urine Bilirubin Negative Urine Urobilinogen 0.2 Ur Leukocyte Esterase Negative Urine RBC None seen Urine WBC None seen Ur Squamous Epith Cells None seen Urine Bacteria Many (>30) H Ur Culture Indicated? Specimen cultured SARS-CoV-2 (PCR) Negative Influenza A (RT-PCR) Flu a negative Influenza B (RT-PCR) Flu b negative RSV (PCR) Negative Assessment & Plan Assessment & Plan narrative: 1. Subacute frontal stroke, present on admission and active. -plan is dual anti-platelet therapy, high-dose atorvastatin. Follow neurologic exam. MRI brain has been completed. Physical therapy and Occupational therapy evaluations. 2. Subacute vertigo and hearing loss, present on admission and active. -she describes some component ago being positional. Vertigo maneuver at ENT off ice without any improvement. We will give low-dose scheduled meclizine overnight. 3. Possible urinary tract infection, present on admission and active. -ceftriaxone 1 g Q 24 hours, follow urine 4. Asthma, present on admission and stable. -follow clinically, nebulizers as needed. Time Spent With Patient Critical Care time: Spent 45 minutes with this admission.
[2022-12-09] MEDS: cefTRIAXone 1,000 MG in SODIUM CHLORIDE 0.9% 100 ML 200 MG IV (17:07)
[2022-12-09 17:33] LABS: Hemoglobin A1C% w Est Avg Glu 5.4 % (4.0-6.0)
[2022-12-09 17:35] LABS: BUN Creatinine Ratio 17.2 (6-22); Blood Urea Nitrogen 11 mg/dL (7-17); Calcium 8.8 mg/dL (8.4-10.2); Carbon Dioxide 28 mmol/L (22-32); Chloride 102 mmol/L (98-107); Cholesterol 211 mg/dL (140-199); Estimated Glomerular Filt Rate > 60 mL/min (>60); Glucose 85 mg/dL (80-110); HDL Cholesterol 99 mg/dL (40-60); HEMOLYSIS 35 (0-50); LDL Cholesterol Calculated 84 mg/dL (<100); Potassium 3.9 mmol/L (3.4-5.1); Sodium 136 mmol/L (137-145); Triglycerides 142 mg/dL (35-150)
[2022-12-09] MEDS: MECLIZINE HCL 12.5 MG TABLET PO (18:00)
[2022-12-09] MEDS: ATORVASTATIN 20 MG TABLET 80 MG PO (21:38)
[2022-12-09] MEDS: DOCUSATE 100 MG CAPSULE PO (21:38)
[2022-12-09] MEDS: HEPARIN 5,000 UNIT/ML VIAL 5000 UNIT SUBCUT (21:38)
--- NOTE | 2022-12-09 21:44 | DI.RAD.S_ITS ---
PROCEDURE: XR CHEST 1V INDICATIONS: chest pain TECHNIQUE: One view of the chest was acquired. COMPARISON: [facility], , CHEST 2 VIEW, 12/14/2011, 14:04. FINDINGS: Surgical changes and devices: None. Lungs and pleura: Lungs are clear. No pleural effusions or pneumothorax. Mediastinum: Mediastinal contours appear normal. Heart size is normal. Bones and chest wall: No suspicious bony lesions. Overlying soft tissues appear unremarkable. IMPRESSION: 1. No acute cardiopulmonary disease. Dictated by: Lalit Horowitz M.D. on 12/09/2022 at 22:35 Approved by: Lalit Horowitz M.D. on 12/09/2022 at 22:35
[2022-12-09] MEDS: ASPIRIN EC 325 MG TABLET PO (21:56)
[2022-12-09 22:20] LABS: Troponin I < 0.012 ng/mL (0.01-0.034)
[2022-12-10] VITALS (9 sets, daily range): BP systolic 119–140; BP diastolic 55–71; PULSE 62–85; RESP 17–18; TEMP 36.1–37.2; O2SAT 94–97
[2022-12-10] MEDS: MECLIZINE HCL 12.5 MG TABLET PO ×3 (00:41→13:04)
--- NOTE | 2022-12-10 07:27 | P.PN_ITS ---
Subjective Subjective Interval history: Exam Vital Signs (past 8 hours): - 12/10/22 01:00 12/10/22 00:00 12/10/22 04:00 Temperature 97.8 F Pulse Rate 62 Respiratory Rate 17 Blood Pressure 119/56 L Pulse Oximetry 94 94 96 Oxygen Delivery Method Room Air Room Air Oxygen Flow Rate 0 0 0 12/10/22 05:00 Temperature 97.0 F L Pulse Rate 66 Respiratory Rate 18 Blood Pressure 119/55 L Pulse Oximetry 95 Oxygen Delivery Method Oxygen Flow Rate 0 Oxygen Delivery Method Room Air Oxygen Flow Rate 0 Narrative Exam Narrative: She is alert oriented x3, no acute distress. Fluent speech and normal judgment. Head reveals symmetric pupils, EOMI. No diplopia. No nystagmus. Neck is supple, no adenopathy. Normal thyroid. No range of motion. Lungs Are clear with normal rate and effort. Heart is regular without murmur gallop or rub. Referral pulses. Abdomen is soft, nontender, no organomegaly Extremities are free of edema, good peripheral pulses. Skin is free of rash, lesions or petechiae. Joints are not swollen or deformed. Judgment and speech are normal. Neurologically cranial nerves are intact. Motor strength is 5/5 all extremities. Objective ECG Impression: NSR Imaging CT scan - head: Radiologist's impression: No acute abnormalities, or bleed. MRI - head: Radiologist's impression: IMPRESSION:? A punctate infarct is seen in the right frontal lobe subcortical region, possibly micro embolic.? () ? Correlate clinically for a possible source.? If the patient has any personal history of malignancy, consider also follow-up imaging. ? Chronic findings as above.? CTA Head and Neck: Radiologist's impression: CTA without large vessel occlusion or high-grade stenosis.? 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 This was seen in 2021 imaging. ? [id number] atherosclerotic disease.? Moderate narrowing of the left vertebral artery origin. ? Labs 12/09/22 10:28 12/09/22 17:14 Labs: Laboratory Results - last 24 hr 12/09/22 12/09/22 12/09/22 10:28 10:28 10:28 WBC 5.9 RBC 4.57 Hgb 15.0 Hct 44.1 MCV 96.5 MCH 32.7 MCHC 33.9 RDW 12.9 Plt Count 107 L Neut % (Auto) 65.3 Lymph % (Auto) 22.5 L [place] % (Auto) 6.9 Eos % (Auto) 4.8 H Baso % (Auto) 0.5 Neut # (Auto) 3800 Lymph # (Auto) 1300 [place] # (Auto) 400 Eos # (Auto) 300 Baso # (Auto) 0 PT 10.7 INR 0.9 APTT 30 Sodium 136 L Potassium 4.0 Chloride 100 Carbon Dioxide 31 BUN 13 Creatinine 0.65 Estimated GFR > 60 BUN/Creatinine Ratio 20.0 Glucose 92 Hemoglobin A1c Calcium 8.9 Total Bilirubin 0.7 AST 41 H ALT 37 H Alkaline Phosphatase 158 H Total Creatine Kinase 38 CK-MB (CK-2) TNP CK-MB (CK-2) Rel Index TNP Troponin I < 0.012 Total Protein 6.9 Albumin 4.2 Globulin 2.7 Albumin/Globulin Ratio 1.6 Triglycerides Cholesterol LDL Cholesterol, Calc HDL Cholesterol Urine Color Urine Appearance Urine pH Ur Specific [place] Urine Protein Urine Glucose (UA) Urine Ketones Urine Occult Blood Urine Nitrate Urine Bilirubin Urine Urobilinogen Ur Leukocyte Esterase Urine RBC Urine WBC Ur Squamous Epith Cells Urine Bacteria Ur Culture Indicated? SARS-CoV-2 (PCR) Influenza A (RT-PCR) Influenza B (RT-PCR) RSV (PCR) 12/09/22 12/09/22 12/09/22 11:56 12:30 17:14 WBC RBC Hgb Hct MCV MCH MCHC RDW Plt Count Neut % (Auto) Lymph % (Auto) [place] % (Auto) Eos % (Auto) Baso % (Auto) Neut # (Auto) Lymph # (Auto) [place] # (Auto) Eos # (Auto) Baso # (Auto) PT INR APTT Sodium 136 L Potassium 3.9 Chloride 102 Carbon Dioxide 28 BUN 11 Creatinine 0.64 Estimated GFR > 60 BUN/Creatinine Ratio 17.2 Glucose 85 Hemoglobin A1c Calcium 8.8 Total Bilirubin AST ALT Alkaline Phosphatase Total Creatine Kinase CK-MB (CK-2) CK-MB (CK-2) Rel Index Troponin I Total Protein Albumin Globulin Albumin/Globulin Ratio Triglycerides Cholesterol LDL Cholesterol, Calc HDL Cholesterol Urine Color Yellow Urine Appearance Clear Urine pH 7.5 Ur Specific [place] 1.010 Urine Protein Negative Urine Glucose (UA) Negative Urine Ketones Negative Urine Occult Blood Negative Urine Nitrate Positive H Urine Bilirubin Negative Urine Urobilinogen 0.2 Ur Leukocyte Esterase Negative Urine RBC None seen Urine WBC None seen Ur Squamous Epith Cells None seen Urine Bacteria Many (>30) H Ur Culture Indicated? Specimen cultured SARS-CoV-2 (PCR) Negative Influenza A (RT-PCR) Flu a negative Influenza B (RT-PCR) Flu b negative RSV (PCR) Negative 12/09/22 12/09/22 12/09/22 17:14 17:14 21:51 WBC RBC Hgb Hct MCV MCH MCHC RDW Plt Count Neut % (Auto) Lymph % (Auto) [place] % (Auto) Eos % (Auto) Baso % (Auto) Neut # (Auto) Lymph # (Auto) [place] # (Auto) Eos # (Auto) Baso # (Auto) PT INR APTT Sodium Potassium Chloride Carbon Dioxide BUN Creatinine Estimated GFR BUN/Creatinine Ratio Glucose Hemoglobin A1c 5.4 Calcium Total Bilirubin AST ALT Alkaline Phosphatase Total Creatine Kinase CK-MB (CK-2) CK-MB (CK-2) Rel Index Troponin I < 0.012 Total Protein Albumin Globulin Albumin/Globulin Ratio Triglycerides 142 Cholesterol 211 H LDL Cholesterol, Calc 84 HDL Cholesterol 99 H Urine Color Urine Appearance Urine pH Ur Specific [place] Urine Protein Urine Glucose (UA) Urine Ketones Urine Occult Blood Urine Nitrate Urine Bilirubin Urine Urobilinogen Ur Leukocyte Esterase Urine RBC Urine WBC Ur Squamous Epith Cells Urine Bacteria Ur Culture Indicated? SARS-CoV-2 (PCR) Influenza A (RT-PCR) Influenza B (RT-PCR) RSV (PCR) PFSH Family History (Updated 12/09/22 @ 16:53 by Luis John MD) Other Family history of cerebrovascular accident (CVA) in father Social History household members: spouse Smoking Status: Never smoker alcohol intake: current Assessment & Plan Assessment & Plan narrative: 1. Subacute frontal stroke, present on admission and active. -plan is dual anti-platelet therapy, high-dose atorvastatin.? Follow neurologic exam.? MRI brain has been completed.? Physical therapy and Occupational therapy evaluations. 2. Subacute vertigo and hearing loss, present on admission and active. -she describes some component ago being positional.? Vertigo maneuver at ENT office without any improvement.? We will give low-dose scheduled meclizine overnight. 3. Possible urinary tract infection, present on admission and active. -ceftriaxone 1 g Q 24 hours, follow urine 4. Asthma, present on admission and stable. -follow clinically, nebulizers as needed. She is FULL CODE. Proxy decision maker: . Time Spent With Patient Critical Care time: I spent a total of [] minutes of critical care time on this patient's care today; this time is exclusive of procedural time.
--- NOTE | 2022-12-10 07:43 | DI.ECHO.S_ITS ---
[facility]---------+ [facility] +---------+ : : [address] [place] : : : : [id number] : : : : Phone: [phone]+ Echocardiogram Report + + :Name: BETTE CLAY Study Date: 12/10/2022 Height: 63 in : :[facility] ReadingLocation: Weight: 147 lb : : Gender: Female BSA: 1.7 m2 : :: 1945 Age: 77 yrs BP: 140/71 mmHg: :Reason For Study: CHEST PAIN, CVA HR: 70 : :Ordering Physician: VIDA, : :DOMINGO Jin Performed By: MARCELLUS BAI : :Referring: DOMINGO MCPHERSON : + + Interpretation Summary The ejection fraction is estimated to be 60-65%. Diastolic parameters suggest probable normal left ventricular diastolic function and normal filling pressures. Doppler interrogation and injection of saline echo contrast shows no evidence for an interatrial shunt. No significant valvular abnormalities. Unable to estimate PASP. Procedure: A two-dimensional transthoracic echocardiogram with color flow and Doppler was performed. The study quality was technically adequate. A saline contrast injection was performed to assess for cardiac shunting. There is no prior echocardiogram noted for this patient. The patient was in normal sinus rhythm during the exam. Left Ventricle: The left ventricle is normal in size. There is normal left ventricular wall thickness. Left ventricular systolic function is normal. The ejection fraction is estimated to be 60-65%. Diastolic parameters suggest probable normal left ventricular diastolic function and normal filling pressures. Right Ventricle: The right ventricle is normal in size and function. Atria: The left atrial size is normal. Right atrial size is normal. Doppler interrogation and injection of saline echo contrast shows no evidence for an interatrial shunt. The atrial septum is aneurysmal. Mitral Valve: The mitral valve leaflets are slightly calcified. There is no mitral regurgitation noted. Aortic Valve: The aortic valve is mildly calcified. The aortic valve opens well. The aortic valve is trileaflet. There is no aortic valve stenosis. No aortic regurgitation is present. Tricuspid Valve: The tricuspid valve is normal in structure and function. No tricuspid regurgitation. Pulmonary artery pressures cannot be estimated because of the lack of a measurable TR jet velocity. Pulmonic Valve: The pulmonic valve is not well visualized. There is no pulmonic valvular regurgitation. Great Vessels: The aortic root is normal size. The ascending aorta is normal in size. The IVC is of normal diameter and collapses greater than 50% with a sniff. This suggests a low right atrial pressure of 3 mm Hg. Pericardium/ Pleura There is no pericardial effusion. There is no pleural effusion. MMode/2D Measurements & Calculations LVIDd: 4.0 cm LVOT diam: 1.9 cm LVIDs: 2.6 cm Ao root diam: 3.0 cm FS: 35.0 % asc Aorta Diam: 3.4 cm IVSd: 0.90 cm LVPWd: 0.70 cm LV varela. diameter/BSA (cm/m^2): 2.4 LV sys. diameter/BSA (cm/m^2): 1.5 LA A2 area: 15.0 cm2 RA long axis: 4.0 cm LA A4 area: 9.5 cm2 LA length (vol): 4.7 cm LA vol: 25.5 ml LA vol index: 15.0 ml/m2 LVLs ap4: 5.7 cm LVLd ap2: 6.3 cm LVLs ap2: 5.0 cm TAPSE_phl: 1.8 cm Doppler Measurements & Calculations Ao V2 max: 138.0 cm/sec LVOT Max Syd: 102.0 cm/sec Ao V2 mean: 84.5 cm/sec LV V1 max P.2 mmHg Ao max P.0 mmHg LV V1 VTI: 18.7 cm Ao mean P.0 mmHg SHAYAN(I,D): 2.6 cm2 Ao V2 VTI: 20.4 cm SHAYAN(V,D): 2.1 cm2 sev ratio: 0.92 SHAYAN indexed to BSA (cm^2/m^2): 1.5 MV E max syd: 74.9 cm/sec PA V2 max: 103.0 cm/sec MV A max syd: 109.0 cm/sec PA V2 mean: 72.8 cm/sec MV E/A: 0.69 PA mean P.0 mmHg Med Peak E' Syd: 5.5 cm/sec PA pr(Accel): 28.1 mmHg E/E' med: 13.6 Lat Peak E' Syd: 7.4 cm/sec E/E' lat: 10.2 E/e' average: 11.9 MV dec time: 0.32 sec SV(LVOT): 53.0 ml AV VR_phl: 0.74 SHAYAN(VTI)/BSA_phl: 1.5 MV P1/2t-pr_phl: 93.0 msec Reading Physician:01:02 PM
[2022-12-10 07:52] LABS: Troponin I < 0.012 ng/mL (0.01-0.034)
[2022-12-10] MEDS: CLOPIDOGREL 75 MG TABLET PO (09:10)
[2022-12-10] MEDS: ASPIRIN EC 81 MG TABLET PO (09:10)
[2022-12-10] MEDS: HEPARIN 5,000 UNIT/ML VIAL 5000 UNIT SUBCUT (09:10)
[2022-12-10] MEDS: DOCUSATE 100 MG CAPSULE PO (09:10)
--- NOTE | 2022-12-10 10:35 | PT.IIE ---
Addendum entered and electronically signed by Cony Byrd, PT 12/10/22 17:04: Assessment: Pt reports constant dizziness at rest and with activity. She describes it as feeling from her body. Her dizziness did not change with positions in bed but got worse when she is up. Clinical screening is negative for BPPV at this time. Her MRI was positive for acute frontal infarct. She demonstrates decreased balance associated with her dizziness this visit. She is emotional about her deficits at this time. Her Spouse is present this visit and is very supportive. Her dizziness appear to be from a central cause at this time and may be compounded by her history of head injury years ago. Will plan for discharge home with her Spouse if she continues to progress in therapy. Original Note: Current Diagnoses Cerebral infarction, unspecified (12/09/22) Physical Therapy Inpatient Evaluation/Re-Eval M1 PT/OT-IP Prior Functional Status Start: 12/10/22 12:49 Freq: NEEDED Status: Active Protocol: Document 12/10/22 11:48 [facility] (Rec: 12/10/22 13:43 [facility] [id number]) Medical Review Prior Functional Status Communication independent Mobility and Gait Pt uses a cane outside and furniture cruises in the house . Activities of Daily Living and IADL's Pt able to do all ADL's her own and has a someone to come clean the house. Social History Household Members spouse Living Arrangements House Number of Floors (Floors) One Floor Number of Stairs To Enter/Railing? One step from the garage. Home Environment Standard Height Toilet,Walk in Shower Home Equipment Front Wheel Walker,Straight Cane M2 PT-IP Current Condition Start: 12/10/22 13:31 Freq: NEEDED Status: Active Protocol: Document 12/10/22 10:35 DLM (Rec: 12/10/22 14:01 DL [id number]) Physical Therapy Current Condition Current Condition Evaluation Date 12/10/22 Treatment Diagnosis CVA, dizziness, impaired mobility/gait Onset Date 12/09/22 M3 PT-IP Subjective Start: 12/10/22 13:31 Freq: NEEDED Status: Active Protocol: Document 12/10/22 10:35 D[facility] (Rec: 12/10/22 14:01 DLM [id number]) Subjective Physical Therapy Visit Type Type Initial Evaluation Visit Start Time 10:02 Visit Stop Time 10:35 Total Visit Minutes 33 Number of SHIP RIGGER Visits 0 Physical Therapy Visit Comments Patient Comments She reports she is more dizzy than normal for her. She reports feeling disconnected from her body. She is not spinning nor do things look like they are moving. Patient Goals Discharge home Therapy Pain Assessment Pain Present Pain Present Denied Pain M4 PT-IP Mobility and Gait Start: 12/10/22 13:31 Freq: NEEDED Status: Active Protocol: Document 12/10/22 10:35 DLM (Rec: 12/10/22 14:01 [facility] [id number]) PT-Bed Mobility Assessment Rolling Level of Assist Independent Supine to Sit Supine to Sit Independent Sit to Supine Sit to Supine Independent Scooting Scooting to Edge of Bed Independent Scooting Up and Down in Bed Independent PT-Transfer Assessment Sit to and From Stand Sit to and from Stand Standby Assistance,2 Person Assistance Equipment Transfer Assistive Device Gait Belt Transfers Transfer Destination Bed Transfer Technique Stand Step Pivot Transfer Ability Level of Assist Standby Assistance,Use of Upper Extremities Comments Mobility Comments Pt is moving slowly to manage her dizziness. She likes to Factor 14. Gait Assessment Gait Gait Assistance Required: Standby Assistance Distance (Feet) 30 Assistive Devices Assistive Device Gait Belt Factors Limiting Gait Function Factors Limiting Gait Function Decreased Activity Tolerance, Poor Balance Comments Gait Comments She describes constant dizziness during mobility and at rest. She had one episode of spinning dizziness during left sidelying to sit but is resolved with a brief rest break. She demonstrates mild decrease in her balance. Stair Climbing Assessment Comments Stair Climbing Comments one step to enter the house PT-Balance Assessment Sitting Balance and Reactions Static Sitting Balance Ability Good Dynamic Sitting Balance Ability Good Standing Balance and Reactions Static Standing Balance Ability Good Dynamic Standing Balance Ability Fair Comments Other Balance Tests/Deviations/Treatment unable to complete further : balance training this visit since pt needs to have an Echo completed, will plan to continue to assess this in future treatments M5 PT-IP Objective Assessments Start: 12/10/22 13:31 Freq: NEEDED Status: Active Protocol: Document 12/10/22 10:35 DLM (Rec: 12/10/22 14:01 [facility] [id number]) Orientation Orientation/Cognition Level of Alertness Alert Orientation Name,Age,Birthday,Month,Date, Year,Day of Week,Place, Situation Language Function Ability No Deficits Noted Safety Awareness Understands Safety Issues Memory Description Short Term Impaired Comments decreased mental processing noted, see OT for more detailed assessment Pt is emotional this visit Gross Range of Motion Upper Extremity ROM Assessment Within Functional Limits Lower Extremity ROM Assessment Within Functional Limits Strength Upper Extremity Strength Assessment Within Functional Limits Lower Extremity Strength Assessment Within Functional Limits Coordination Assessment Gross Coordination Gross Coordination Impaired Assessment Finger to Nose Test Minimal Impairment Foot Tapping Test Minimal Impairment Sensation Assessment Sensation Gross Sensation WNL Muscle Tone Muscle Tone WNL Yes M6 PT-IP Treatment Start: 12/10/22 13:31 Freq: NEEDED Status: Active Protocol: Document 12/10/22 10:35 [facility]LM (Rec: 12/10/22 14:01 DL [id number]) Physical Therapy Treatment Education Education Provided Safety Equipment Issued Equipment Type and Company pt has her cane from home in her room Other Treatments Other Treatment Performed her Spouse is present this visit M7 PT-IP Assessment and Plan Start: 12/10/22 13:31 Freq: NEEDED Status: Active Protocol: Document 12/10/22 10:35 DLM (Rec: 12/10/22 14:01 DLM [id number]) PT Summary Assessment and Plan Potential Rehabilitation Potential Good Status of Condition at Evaluation Evolving Summary Impairments Balance,Coordination,Cognition ,Transfers,Gait,Activity Tolerance Goals Transfer Goal Independent,Cane Gait Goal Independent,Cane Gait Distance 150 feet Other Goals up/down one step with cane and SBA Days to Meet Goals 2 Frequency of Treatment Frequency Of Treatment Twice a Day Treatment Plan Physical Therapy Treatment Plan Transfer Training,Gait Training,Therapeutic Exercise, Balance Retraining,Discharge Planning,Neuromuscular Re-ed, Coordination Retraining Precautions Other Precautions monitor dizziness Recommendations To Nursing Amount of Assist Needed Standby Assistance Discharge Recommendations PT Discharge Recommendations Home with Assistance,Home Health Other Discharge Recommendations home health PT for balance training and dizziness management Transportation Needs at Discharge Private Vehicle
--- NOTE | 2022-12-10 10:45 | PC.NURSE ---
1040 Echocardiogram being performed at bedside.
--- NOTE | 2022-12-10 11:25 | SLP.IPNOTE ---
DECK LID FITTER visited pt, who was lying in bed with spouse present. Explained DECK LID FITTER role for speech/swallowing evaluation. Pt stated she was not having any trouble with speech, nor swallowing. Pt's spouse endorsed this. Pt and spouse stated they did not feel a speech evaluation was necessary and verbally declined evaluation.
--- NOTE | 2022-12-10 12:44 | OT.IP.EVAL ---
Current Diagnoses Cerebral infarction, unspecified (12/09/22) Occupational Therapy Inpatient Evaluation/Re-Eval M1 PT/OT-IP Prior Functional Status Start: 12/10/22 12:49 Freq: NEEDED Status: Active Protocol: Document 12/10/22 11:48 [facility] (Rec: 12/10/22 13:43 [facility] [id number]) Medical Review Prior Functional Status Communication independent Mobility and Gait Pt uses a cane outside and furniture cruises in the house . Activities of Daily Living and IADL's Pt able to do all ADL's her own and has a someone to come clean the house. Social History Household Members spouse Living Arrangements House Number of Floors (Floors) One Floor Number of Stairs To Enter/Railing? One step from the garage. Home Environment Standard Height Toilet,Walk in Shower Home Equipment Front Wheel Walker,Straight Cane M2 OT-IP Current Condition Start: 12/10/22 12:49 Freq: Status: Active Protocol: Document 12/10/22 11:48 [facility] (Rec: 12/10/22 13:43 [facility] [id number]) Occupational Therapy Current Condition Current Condition Evaluation Date 12/10/22 Treatment Diagnosis Right frontal lobe subcortical region, dizziness Diagnosis Onset Date 12/09/22 M3 OT- IP Subjective and Pain Start: 12/10/22 12:49 Freq: Status: Active Protocol: Document 12/10/22 11:48 [facility] (Rec: 12/10/22 13:43 [facility] [id number]) OT- Subjective Occupational Therapy Visit Type Type Initial Evaluation Visit Start Time 11:48 Visit Stop Time 12:44 Total Visit Minutes 56 Occupational Therapy Visit Comments Patient Comments Pt in bed and agreed to do OT eval. Patient/Caregiver Goals Pt wanting to go home. OT Pain Assessment Pain When Pain Assessed At Rest Pain Present Pain Present Denied Pain M4 OT- IP ADL's Start: 12/10/22 12:49 Freq: Status: Active Protocol: Document 12/10/22 11:48 [facility] (Rec: 12/10/22 13:43 [facility] [id number]) OT [id number] Comments OT Self-Feeding Comments No needs anticipated. OT ADL-Grooming Comments OT Grooming Comments Not performed. OT ADL-Oral Care Comments Oral Care Comments Pt not wanting to do at this time. OT ADL-Dressing General Eval Lower Body Dressing Ability Standby Assistance Comments OT Dressing Comments Pt able to do her socks on her own. OT ADL-Toileting Comments OT Toileting Comments Pt not needing to go at this time. OT ADL-Bathing Comments OT Bathing Comments Pt not wanting to do and not open to using the shower stool at home. Pt states leans on the shower wall for showers versus use of a shower chair. 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 Medication Management Medication Management Comments Pt states does it on her own. Pt would benefit from supervision due to having some difficulty with problem solving and sequencing at this time. Money Management Money Management Comments Pt would benefit from assist at this time and having trouble with calculations and problem solving. Painter And Decorator Painter And Decorator Caregiver Provides Assist Driving Driving Concerns Identified Regarding Safety M6 OT- IP Functional Cognition Start: 12/10/22 12:49 Freq: Status: Active Protocol: Document 12/10/22 11:48 [facility] (Rec: 12/10/22 13:43 [facility] [id number]) Cognitive Factors Limiting Selfcare Function Cognitive Ability Level of Alertness Alert Patient Orientation Name,Age,Birthday,Month,Date, Year,Day of Week,Place, Situation Attention Span Ability Capable of Focused Attention, Capable of Sustained Attention Ability to Follow Commands Able to Follow One Step Commands Memory Description Short Term Impaired,Working Impaired Problem Solving Ability Unable to Identify Errors, Needs Assist to Identify Solutions Executive Function Ability Unable to Make Plans,Unable to Organize Plans,Unable to Remember Details Cognitive Tests SLUMS Pt scored 20/30 on the SLUMS which implies mild cognitive deficits however has a history of fall in 2019 and per pt's feels that she is at her baseline for cognitive needs. Pt able to recall 2/5 objects after time passed, unable to states 4 digit number backwards, not able to draw the hours hands correctly after time given, and able to answer 2/4 questions righ after paragraph read. Cognitive Comments Cognitive Assessment Comments Pt a little confused and trying to drink her coffee out of the stirring stick and needing her to cue her to take the straw out. Pt having difficulty to sip from the cup and spilled on her gown. Pt having difficulty with math calculations and sequencing. Pt states feels that pt's cognitive level at this time is her baseline. Pt scored 209 seconds and reminders to go back and forth from numbers to letters. Pt's scored implies severe deficits with visual attention , task switching, speed of processing, executive functioning, and mental flexibility. Pt is aware that she will not be driving anymore at this time and know now to have to schedule her appointments to when he is home. Pt also has a possible UTI which may also be affecting her cognition at this time. Pt able to accurately solve emergency situations on her own. OT- Vision and Hearing OT- Hearing Assessment OT- Hearing Assessment Hearing Impaired OT- Vision Assessment Visual Acuity Glasses For Reading Occular Pursuits WFL Visual Convergence WFL Visual Mathews WFL Diplopia Absent M7 OT- IP Mobility and Balance Start: 12/10/22 12:49 Freq: Status: Active Protocol: Document 12/10/22 11:48 [facility] (Rec: 12/10/22 13:43 [facility] [id number]) OT- Bed Mobility Assessment Supine to Sit Supine to Sit Assist Standby Assistance Sit to Supine Sit to Supine Assist Standby Assistance Scooting Scooting to Edge of Bed Standby Assistance OT-Transfer Assessment Sit to and From Stand Sit to and from Stand Standby Assistance,Contact Guard Assistance Transfers Transfer Ability Standby Assistance,Contact Guard Assistance Technique Transfer Destination Bed Transfer Technique Stand Step Pivot Devices Transfer Assistive Devices Gait Belt,Straight Cane Comments Mobility Comments SBA to get into and out of the bed. SBA to stand and CGA for balance at time as a little off balanced and initially while standing buckled at her knee but able to recover. Pt needing from CGA to close SBA with the cane to walk to the bench seating and back to bed. Pt states initially not dizzy and then after getting up feeling dizzy like she normally has but not as bad as yesterday. OT- Balance Assessment Sitting Balance and Reactions Static Sitting Balance Ability Normal Dynamic Sitting Balance Ability Normal Standing Balance and Reactions Static Standing Balance Ability Good Dynamic Standing Balance Ability Fair M8 OT- IP Objective Assessments Start: 12/10/22 12:49 Freq: Status: Active Protocol: Document 12/10/22 11:48 [facility] (Rec: 12/10/22 13:43 [facility] [id number]) OT Strength Comments Strength Comments BUE 4/5 OT- Coordination Assessment Upper Extremity Finger to Nose Test Within Functional Limits Comments Coordination Comments Pt a little slow for diadochokinesis but after a but of practice able to do on her own. OT-Muscle Tone Assessment Muscle Tone WNL Yes OT Sensation Assessment Comments Summary Comments Intact for light touch M9 OT- IP Assessment and Plan Start: 12/10/22 12:49 Freq: Status: Active Protocol: Document 12/10/22 11:48 [facility] (Rec: 12/10/22 13:43 [facility] [id number]) OT Summary Assessment and Plan Potential Rehabilitation Potential Good Analytic Complexity at Evaluation High Summary OT Impairments Balance,Coordination, Functional Cognition, Functional Mobility,Dressing, Toileting,Bathing,Toilet Transfers,Shower Transfers Progress Towards Goals Slow Progress due to Medical Issues,Slow Progress due to Cognition Assessment Summary Pt High complexity and main barriers are dizziness, unsteady on her feet, and now having sequencing and problem solving issues. Pt will benefit assist at home and to have her drive now. Goals Grooming Goal Independent Dressing Goal Independent Toileting Goal Independent Bathing Goal Independent Toilet Transfer Goal Independent Shower Transfer Goal Independent Days to Meet Goals 7 Frequency of Treatment Frequency Of Treatment Once a Day Treatment Plan OT Treatment Plan ADL Training,Functional Cognition Training,Functional Mobility,Patient/Family Education,Discharge Planning Discharge Recommendations OT Discharge Recommendations Home with Assistance Transportation Needs at Discharge Private Vehicle
--- NOTE | 2022-12-10 15:42 | PT.IPTN ---
Current Diagnoses Cerebral infarction, unspecified (12/09/22) Physical Therapy Treatment Note M2 PT-IP Current Condition Start: 12/10/22 13:31 Freq: NEEDED Status: Active Protocol: Document 12/10/22 10:35 [facility] (Rec: 12/10/22 14:01 DLM [id number]) Physical Therapy Current Condition Current Condition Evaluation Date 12/10/22 Treatment Diagnosis CVA, dizziness, impaired mobility/gait Onset Date 12/09/22 M3 PT-IP Subjective Start: 12/10/22 13:31 Freq: NEEDED Status: Active Protocol: Document 12/10/22 15:42 [facility] (Rec: 12/10/22 17:04 DLM [id number]) Subjective Physical Therapy Visit Type Type Treatment Note Visit Start Time 15:05 Visit Stop Time 15:42 Total Visit Minutes 37 Number of DONOR SERVICES TECHNICIAN Visits 0 Physical Therapy Visit Comments Patient Comments She reports her dizziness is better at rest but continues to have dizziness with mobility. She describes her dizziness as feeling disconnected from herself. Patient Goals Discharge home M4 PT-IP Mobility and Gait Start: 12/10/22 13:31 Freq: NEEDED Status: Active Protocol: Document 12/10/22 15:42 [facility] (Rec: 12/10/22 17:04 [facility] [id number]) PT-Bed Mobility Assessment Rolling Level of Assist Independent Supine to Sit Supine to Sit Independent Sit to Supine Sit to Supine Independent Scooting Scooting to Edge of Bed Independent Scooting Up and Down in Bed Independent PT-Transfer Assessment Sit to and From Stand Sit to and from Stand Standby Assistance,Use of Upper Extremities Equipment Transfer Assistive Device Gait Belt,Straight Cane Transfers Transfer Destination Bed Transfer Technique Stand Step Pivot Transfer Ability Level of Assist Standby Assistance,Use of Upper Extremities Comments Mobility Comments She has increased dizziness with right sidelying to sit with decreased balance to left side with initial sitting. She is able to recover her balance independently. No dizziness with head motions in sitting. Gait Assessment Gait Gait Assistance Required: Standby Assistance Distance (Feet) 200 Assistive Devices Assistive Device Gait Belt,Front Wheeled Walker Factors Limiting Gait Function Factors Limiting Gait Function Poor Balance Comments Gait Comments Gait training started with the cane but she has increased sway during gait although no losses of balance, she initially holds the cane in both hands in front of her then progresses it to her side in the right hand. Gait trial performed with the FWW which shows improved balance and better management of her dizziness. Pt agrees to use the FWW at home to help manage her dizziness and decrease her fall risks. Stair Climbing Assessment Evaluation Level of Assist On Stairs Contact Guard Assistance Devices Stair Climbing Assistive Devices Straight Cane,Left Railing Technique/Endurance Stair Climbing Direction Ascend and Descend Stair Climbing Technique Step to Step Number of Steps Climbed 1 Stair Climbing Set # Repetitions (reps) 1 Comments Stair Climbing Comments she reports holding freezer to manage the step into the house PT-Balance Assessment Sitting Balance and Reactions Static Sitting Balance Ability Good Dynamic Sitting Balance Ability Good Standing Balance and Reactions Static Standing Balance Ability Good Dynamic Standing Balance Ability Good Device Used FWW M5 PT-IP Objective Assessments Start: 12/10/22 13:31 Freq: NEEDED Status: Active Protocol: Document 12/10/22 10:35 [facility] (Rec: 12/10/22 14:01 [facility] [id number]) Orientation Orientation/Cognition Level of Alertness Alert Orientation Name,Age,Birthday,Month,Date, Year,Day of Week,Place, Situation Language Function Ability No Deficits Noted Safety Awareness Understands Safety Issues Memory Description Short Term Impaired Comments decreased mental processing noted, see OT for more detailed assessment Pt is emotional this visit Gross Range of Motion Upper Extremity ROM Assessment Within Functional Limits Lower Extremity ROM Assessment Within Functional Limits Strength Upper Extremity Strength Assessment Within Functional Limits Lower Extremity Strength Assessment Within Functional Limits Coordination Assessment Gross Coordination Gross Coordination Impaired Assessment Finger to Nose Test Minimal Impairment Foot Tapping Test Minimal Impairment Sensation Assessment Sensation Gross Sensation WNL Muscle Tone Muscle Tone WNL Yes M6 PT-IP Treatment Start: 12/10/22 13:31 Freq: NEEDED Status: Active Protocol: Document 12/10/22 15:42 [facility] (Rec: 12/10/22 17:04 DLM [id number]) Physical Therapy Treatment Education Education Provided Safety Other Treatments Other Treatment Performed no family present this visit M7 PT-IP Assessment and Plan Start: 12/10/22 13:31 Freq: NEEDED Status: Active Protocol: Document 12/10/22 15:42 [facility] (Rec: 12/10/22 17:04 DLM [id number]) PT Summary Assessment and Plan Summary Impairments Balance,Coordination,Cognition ,Transfers,Gait,Activity Tolerance Progress Towards Goals Progressing Toward Goals,Safe For Discharge Assessment Summary Darshana is alert and resting in bed. She reports her dizziness has improved over-all but has not resolved. She reports no dizziness resting in bed but has dizziness with movement when up. Clinical screening is negative for BPPV and negative for nystagmus at this time. She has mild decrease in her standing balance that appears to be related to her dizziness. She demonstrates a safer gait pattern with the FWW than with her cane. She is able to go up and down the one step to get into her house but recommend assist from her Spouse. Recommend she continue physical therapy for her dizziness and balance and since she will not be driving she will need home health PT at discharge. Goals Transfer Goal Independent,Cane Gait Goal Independent,Cane Gait Distance 150 feet Other Goals up/down one step with cane and SBA Days to Meet Goals 2 Frequency of Treatment Frequency Of Treatment Twice a Day Treatment Plan Physical Therapy Treatment Plan Transfer Training,Gait Training,Therapeutic Exercise, Balance Retraining,Discharge Planning,Neuromuscular Re-ed, Coordination Retraining Precautions Other Precautions monitor dizziness Recommendations To Nursing Amount of Assist Needed Standby Assistance Discharge Recommendations PT Discharge Recommendations Home with Assistance,Home Health Other Discharge Recommendations home health PT for balance training and dizziness management, her Spouse will assist her at home as needed Transportation Needs at Discharge Private Vehicle
--- NOTE | 2022-12-10 16:10 | P.DS_ITS ---
History of Present Illness History of Present Illness Date Patient Seen: 12/09/22 Time Patient Seen: 16:00 Chief complaint: Vertigo Narrative: The patient is a 77-year-old female who describes a 1-2 month history of vertigo and bilateral hearing loss. She is being followed by Dr. Kraus, ENT. The placed on a trial of steroids to see if this improved. These were recently stopped. Said she awoke today feeling dissociated from her body and that she had vertigo and a headache her was at work, she drove herself to her prescheduled ENT appointment. There she was referred to the emergency department. In the emergency department she denied any weakness or numbness of arms or legs, or diplopia. She also denies tinnitus. The patient underwent stat CT which was negative for evidence of acute acute bleed. An MRI revealed a subacute frontal infarct. The patient notes that all relatively normal through yesterday but has not been feeling normal since waking this morning. Again she or other neurologic changes. Her speech is normal. The platelet therapy on a there is no specific working diagnosis for her hearing loss and vertigo. She has not been a vertigo she was diagnosed with a possible urinary tract infection in the emergency department, although she denies urinary symptoms. She was started on antibiotics. Discharge Providers Provider Date of admission: 12/09/22 15:57 Discharge Date: 12/10/22 Primary care physician: Dr Mcarthur, [place] Consults: 12/09/22 16:47 Consult to Discharge Planning Routine Comment: Consult to Occupational Therapy Evaluate & Treat Comment: Physician Instructions: Evaluate and treat Consult to Occupational Therapy Evaluate & Treat Comment: CVA and vertigo Physician Instructions: Evaluate and treat Consult to Physical Therapy Evaluate & Treat Comment: Physician Instructions: Evaluate and Treat Consult to Physical Therapy Evaluate & Treat Comment: CVA and vertigo Physician Instructions: Evaluate and Treat Consult to Speech Therapy Evaluate & Treat Comment: Physician Instructions: Evaluate and treat Discharge provider: Luis John MD Summary Hospital Course Discharge Diagnosis: CVA (subacute punctate frontal lobe), present on admission and improved. UTI, present on admission and improved. Vertigo, present on admission and improved. Asthma, present on admission and improved. Hospital Course: The patient was admitted for acute exacerbation of vertigo and feeling outside of herself. An MR during negative CT punctate frontal lobe infarcts. The patient had increased vertigo and has been treated for additional vertigo by her ENT, Dr. Kraus. The patient was placed on scheduled meclizine in the hospital, started on dual antiplatelet therapy, and improved terms of her mental status. She was seen by Physical and Occupational. She is likely benefit from physical therapy for vestibular rehab, and is attempting to have home health physical therapy which would make it much easier for driving with vertigo is likely not safe. She was treated for urine tract infection found at the time of admission will be placed on a total of 5 days of oral antibiotics. She is encouraged to follow up with her primary care doctor as soon as possible. Home health orders have been placed for home physical therapy. Status at Discharge Cognitive/behavioral status at discharge: oriented Functional status at discharge: independent ambulation Overall status at discharge: patient is back to baseline Time Spent with Patient Time spent: Greater than 30 minutes Exam Vital Signs (past 8 hours): - 12/10/22 09:35 12/10/22 12:00 Temperature 99.0 F Pulse Rate 85 Respiratory Rate 18 Blood Pressure 140/71 Pulse Oximetry 95 95 Oxygen Delivery Method Room Air Oxygen Flow Rate 0 0 Oxygen Delivery Method Room Air Oxygen Flow Rate 0 Narrative Exam Narrative: She is alert oriented x3, no acute distress. Fluent speech and normal judgment. Head reveals symmetric pupils, EOMI. No diplopia. No nystagmus. Neck is supple, no adenopathy. Normal thyroid. No range of motion. Lungs Are clear with normal rate and effort. Heart is regular without murmur gallop or rub. Referral pulses. Abdomen is soft, nontender, no organomegaly Extremities are free of edema, good peripheral pulses. Skin is free of rash, lesions or petechiae. Joints are not swollen or deformed. Judgment and speech are normal. Neurologically cranial nerves are intact. Motor strength is 5/5 all extremities. Objective ECG Impression: NSR Labs 12/09/22 10:28 12/09/22 17:14 Labs: Laboratory Results - last 24 hr 12/09/22 12/09/22 12/09/22 17:14 17:14 17:14 Sodium 136 L Potassium 3.9 Chloride 102 Carbon Dioxide 28 BUN 11 Creatinine 0.64 Estimated GFR > 60 BUN/Creatinine Ratio 17.2 Glucose 85 Hemoglobin A1c 5.4 Calcium 8.8 Troponin I Triglycerides 142 Cholesterol 211 H LDL Cholesterol, Calc 84 HDL Cholesterol 99 H 12/09/22 12/10/22 21:51 07:05 Sodium Potassium Chloride Carbon Dioxide BUN Creatinine Estimated GFR BUN/Creatinine Ratio Glucose Hemoglobin A1c Calcium Troponin I < 0.012 < 0.012 Triglycerides Cholesterol LDL Cholesterol, Calc HDL Cholesterol PFSH Family History (Updated 12/09/22 @ 16:53 by Luis John MD) Other Family history of cerebrovascular accident (CVA) in father Social History household members: spouse Smoking Status: Never smoker alcohol intake: current Discharge Assessment & Plan Assessment and Plan Assessment: 1. Subacute frontal stroke, present on admission and active. Symptomatically improved. -I will discharge the patient on mono antiplatelet therapy given the punctate nature of the stroke. She will be treated simply with aspirin and high-dose atorvastatin.? -home health physical therapy for vertigo her issues. 2. Subacute vertigo and hearing loss, present on admission and active. -home health physical therapy for vestibular rehab and meclizine as needed. 3. Possible urinary tract infection, present on admission and active. -ceftriaxone in the hospital, 5 additional days of cephalexin at home. 4. Asthma, present on admission and stable. -follow clinically, nebulizers as needed. Plan of Treatment: Discharge home, home health physical therapy, close follow up with PCP. Discharge Plan Discharge Plan Patient Disposition: Home Health Service Transfer to: [facility] Provider Discharge Comment: PCP within 1 week Discharge orders & Medications Prescriptions: New atorvastatin [Lipitor] 20 mg Tablet 40 mg PO BEDTIME Qty: 60 2RF meclizine 12.5 mg Tablet 12.5 mg PO Q6HR Qty: 60 0RF aspirin 81 mg Tablet,Delayed Release (Dr/Ec) 81 mg PO DAILY Qty: 30 3RF cephalexin 500 mg capsule 500 mg PO Q8H Qty: 15 0RF Continued budesonide-formoterol [Symbicort] 160 MCG/4.5 MCG HFA aerosol inhaler 1 puff INH PRN Qty: 0 ALBUTEROL (PROVENTIL INHALER) 0.09 mg IH PRN Qty: 0 trazodone 100 MG tablet 100 mg PO HS Qty: 0 [VITAMIN D ] 2,000 iu PO QDAY Qty: 0 ibuprofen 800 MG tablet 800 mg PO PRN Qty: 0 Medication counseling provided by Pharmacist: No Follow up/Referrals: Mc De León DO [Primary Care Provider] - Diet/Activity/Treatments Diet: Diet as Tolerated Visit Report/Discharge Packet Stand Alone Forms: Patient Portal/API, Stroke Signs & Symptoms Discharge Data Primary Care Provider: Mc De León
--- NOTE | 2022-12-10 16:15 | CM.DANOTE ---
DCP Assessment: patient is an A&O 77 yr old female who was admitted for vertigo and possible CVA. CM introduced role and patient stated understanding. patient was standing and stated she is ready to get out of the hospital and ready to go home. patient stated she lives with her Jordi in [facility] and is Independent at her baseline with all her ADLs and drives- patient states she does use a cane outside and has a warehouse logistics coordinator come once a week. patients is planning on picking the patient up at [place] . Patient is agreeable to Home Health for balance training with her vertigo. Patient stated she would like signature once CM showed patient her HH choices on IPAD. CM called Jt with [facility] who stated she received referral Faxed by CM along with F2F. CM Team will fax DC summary once it is complete. Cm did let Jt at [facility] know that the patient is DC home today. CM gave patient signature brochure with there phone number to call them if she does not hear from them to set up an appointment for her Home PT. Insurance [facility] and [facility] PCP Dr. Mcarthur Plan: DC home today with [facility] Eunice Romero RNmanager auto Discharge Planning/Care Management CM Discharge Assessment Start: 12/10/22 16:13 Freq: Status: Active Protocol: Document 12/10/22 16:13 HS (Rec: 12/10/22 16:15 HS [id number]) Discharge Planning Assessment Assigned Application Systems Engineer Eunice Romero RNtankroom tender DPOA/Assigned Designee Name Jordi Rice - Contact Information [phone] Advance Directives? No History Provided By Patient,Medical Record Prior Living Arrangements House Household Members spouse Type of transporation used prior to Drives own vehicle admit Independent with ADL's Yes Is patient alert and oriented? Yes Caregiver for Another No Barriers to Discharge No Discharge Plan Home with Home Health Community Services Physical Therapy,Occupational Therapy Referrals Initiated Home Health If patient plan is home with home health Yes : Has signed face to face form been completed? Medicare Choice List Provided Yes Medicare choice list reviewed on patient electronic tablet with SNF/HH Preference Signature - gave brochure and she agreed with PT and OT services at home Contact Name/Phone jt with [facility] Has Agency SNF been contacted Yes Whiteboard Updated in Patient Room with Yes name and ext. # of Application Systems Engineer Review Status In Process Next Review Type Continued Stay Review
== END 2022-12-10 17:35 | disposition home or self-care (01) | DRG 65 ==
LOC: ED 10:48 → AC 15:57
PROVIDERS: Internal Medicine; Admitting Provider Hospitalist; Emergency Provider Emergency Medicine; PCP Family Medicine; Referring Provider Emergency Medicine; Visit Provider Hospitalist
DX: I63.9 Cerebral infarction, unspecified (principal); N39.0 Urinary tract infection, site not specified; R42 Dizziness and giddiness; J45.909 Unspecified asthma, uncomplicated; R29.700 NIHSS score 0; H91.93 Unspecified hearing loss, bilateral; Z20.822 Contact with and (suspected) exposure to COVID-19
CPT/HCPCS: 0241U; 36415; 70496; 70498; 70551; 71045; 80048; 80053; 80061; 81001; 82550; 82962; 83036; 84484; 85025; 85610; 85730; 87077; 87086; 87186; 93005; 93010; 96374; 96375; 97116; 97162; 97166; 97530; 99285; C8929; J0696; J1644; J2060; J2405; Q9957; Q9967

== ENCOUNTER 2024-05-17 18:33 | Emergency (ER) | payer MEDICARE, OTHER, SELFPAY ==
[2022-12-09 17:30] VITALS: BMI 25.7
[2024-05-17 18:36] VITALS: BP 153/72; PULSE 64; RESP 18; TEMP 37.2; O2SAT 98; BMI 26.5
--- NOTE | 2024-05-17 18:51 | DI.RAD.S_ITS ---
PROCEDURE: XR ANKLE RT MIN 3V INDICATIONS: pain after injury recent Achilles tendon repair TECHNIQUE: 3 views of the ankle were acquired. COMPARISON: [facility], CR, XR FOOT 3 VIEWS WEIGHT BEARING LEFT, 06/08/2023, 15:14. [facility], CR, XR FOOT RT MIN 3V, 05/17/2024, 18:51. FINDINGS: Bones: Postsurgical changes are again seen at the posterior calcaneus. Additional postsurgical changes are seen in the 5th metatarsal. No acute fractures or dislocations. Ankle mortise is normally aligned. No suspicious bony lesions. Plantar calcaneal enthesophyte. Soft tissues: Achilles tendon stripe is poorly visualized. Mild nonspecific soft tissue edema. IMPRESSION: Postsurgical changes at the posterior calcaneus. No acute bony abnormality. Approved by: King Mccauley M.D. on 05/17/2024 at 19:47
--- NOTE | 2024-05-17 18:51 | DI.RAD.S_ITS ---
PROCEDURE: XR FOOT RT MIN 3V INDICATIONS: pain after injury TECHNIQUE: 3 views of the foot were acquired. COMPARISON: [facility], CR, XR FOOT 3 VIEWS WEIGHT BEARING LEFT, 06/08/2023, 15:14. FINDINGS: Bones: Postsurgical changes are seen at the posterior calcaneus. Metal screws are again seen in the distal 5th metatarsal. Generalized osteopenia. Scattered degenerative changes are present in the forefoot. Remote prior postsurgical changes at the medial 1st metatarsal head. Plantar calcaneal enthesophyte is present. Soft tissues: Achilles tendon stripe is not well seen. Nonspecific soft tissue edema is present. IMPRESSION: Postsurgical changes at the posterior calcaneus. Nonspecific soft tissue edema. No acute osseous fracture identified. Approved by: King Mccauley M.D. on 05/17/2024 at 19:48
--- NOTE | 2024-05-17 19:31 | PC.NURSE ---
Pt has had right ankle/heel surgery. Recent follow up visit on tuesday05/15/[address] [place] [address] Singleton. Today pt was walking up the stairs at home and as she was stepping up with left leg her right foot slammed into the concrete step. Pt feels that she may have injured or broken something from her prior surgery. Pain has been managed at home with only nightly Ibuprofen, but pain has now increase to an 8/10. Unwrapped cusioned bandage and placed on a chucks pad for provider inspection. CMS intact, pedal pulse strong, some swelling on top of foot below toes. pain is felt in right ankle to about 1/3 lower leg.
--- NOTE | 2024-05-17 20:05 | ED.LOWEXIN ---
HPI - Extremity Injury (Lower) General Chief Complaint: Extremity Injury, Lower Stated Complaint: rt foot injury, recent surgery Time Seen by Provider: 05/17/24 18:38 Source: patient Mode of arrival: Wheelchair History of Present Illness HPI Narrative: 78-year-old female who approximately 1 week ago underwent an Achilles tendon repair. She was nonambulatory. States she was going up some stairs when she hit the front of her right foot on 1 of the stairs. She has pain in the toes of her right foot and pain that goes up to the angle of her right foot. She was not in a splint but does have the ankle wrapped because of her prior surgery. Related Data Home Medications Medication Instructions Recorded Confirmed ALBUTEROL (PROVENTIL INHALER) 0.09 mg IH PRN ##0 12/13/11 12/09/22 budesonide-formoterol HFA 160 1 puff INH PRN ##0 12/13/11 12/09/22 mcg-4.5 mcg/actuation aerosol inhaler (Symbicort) trazodone 100 mg tablet 100 mg PO HS ##0 12/15/11 12/09/22 [VITAMIN D ] 2,000 iu PO QDAY ##0 11/17/12 12/10/22 ibuprofen 800 mg tablet 800 mg PO PRN ##0 11/17/12 12/09/22 Previous Rx's Medication Instructions Recorded aspirin 81 mg tablet,delayed 81 mg PO DAILY #30 tabs 12/10/22 release atorvastatin 20 mg tablet (Lipitor) 40 mg (2 x 20 mg) PO BEDTIME #60 12/10/22 tabs cephalexin 500 mg capsule 500 mg PO Q8H #15 caps 12/10/22 meclizine 12.5 mg tablet 12.5 mg PO Q6HR #60 tabs 12/10/22 Allergies Allergy/AdvReac Type Severity Reaction Status Date / Time Sulfa (Sulfonamide Allergy Verified 12/09/22 10:17 Antibiotics) Review of Systems Constitutional Constitutional: Reports system reviewed and no additional complaints, except as documented Musculoskeletal Musculoskeletal: Reports system reviewed and no additional complaints, except as documented Integumentary/Breasts Skin/Breast: Reports system reviewed and no additional complaints, except as documented Patient History Family History (Updated 12/09/22 @ 16:53 by Luis John MD) Other Family history of cerebrovascular accident (CVA) in father Social History household members: spouse Smoking Status: Never smoker alcohol intake: current Smoking Status: Never smoker alcohol intake frequency: 0-2 drinks per day Substance Use Type: does not use Exam Initial Vital Signs Initial Vital Signs: Vital Signs Temperature 99 F 05/17/24 18:36 Pulse Rate 64 05/17/24 18:36 Respiratory Rate 18 05/17/24 18:36 Blood Pressure 153/72 H 05/17/24 18:36 Pulse Oximetry 98 05/17/24 18:36 Oxygen Delivery Method Room Air 05/17/24 18:36 Cardio Pulses: dorsalis pedis present on the right Skin Other: Mild bruising along the base of the Achilles tendon. Surgical incision appears well without signs of infection. Extrem Other: Postoperative changes to the right ankle Course Orders Ordered: ED Orders 05/17/24 18:51 XR ankle RT min 3V Stat XR foot RT min 3V Stat Vital Signs Vital signs: Vital Signs - 8 hr 05/17/24 18:36 05/17/24 20:08 05/17/24 20:25 Temperature 99 F Pulse Rate 64 66 60 Respiratory Rate 18 18 17 Blood Pressure 153/72 H 166/74 H 162/74 H Pulse Oximetry 98 94 97 Oxygen Delivery Method Room Air Room Air Room Air MDM - Extremity Injury (Lower) Imaging Data Extremity x-ray #1: Radiologist's Impression: PROCEDURE: XR ANKLE RT MIN 3V INDICATIONS: pain after injury recent Achilles tendon repair TECHNIQUE: 3 views of the ankle were acquired. COMPARISON: [facility], CR, XR FOOT 3 VIEWS WEIGHT BEARING LEFT, 06/08/2023, 15:14. [facility], CR, XR FOOT RT MIN 3V, 05/17/2024, 18:51. FINDINGS: Bones: Postsurgical changes are again seen at the posterior calcaneus. Additional postsurgical changes are seen in the 5th metatarsal. No acute fractures or dislocations. Ankle mortise is normally aligned. No suspicious bony lesions. Plantar calcaneal enthesophyte. Soft tissues: Achilles tendon stripe is poorly visualized. Mild nonspecific soft tissue edema. IMPRESSION: Postsurgical changes at the posterior calcaneus. No acute bony abnormality. Extremity x-ray #2: Radiologist's Impression: PROCEDURE: XR FOOT RT MIN 3V INDICATIONS: pain after injury TECHNIQUE: 3 views of the foot were acquired. COMPARISON: [facility] [place], CR, XR FOOT 3 VIEWS WEIGHT BEARING LEFT, 06/08/2023, 15:14. FINDINGS: Bones: Postsurgical changes are seen at the posterior calcaneus. Metal screws are again seen in the distal 5th metatarsal. Generalized osteopenia. Scattered degenerative changes are present in the forefoot. Remote prior postsurgical changes at the medial 1st metatarsal head. Plantar calcaneal enthesophyte is present. Soft tissues: Achilles tendon stripe is not well seen. Nonspecific soft tissue edema is present. IMPRESSION: Postsurgical changes at the posterior calcaneus. Nonspecific soft tissue edema. No acute osseous fracture identified. MDM Narrative Medical decision making narrative: No fractures or dislocations noted on the x-ray. Patient's dressings were replaced. She was neurovascularly intact. Patient can continue to follow the postoperative instructions given to her by the orthopedic surgeon. She was given return precautions and follow-up instructions. She expressed understanding and agreement with plan. Discharge Plan Departure Patient Disposition: Home Clinical Impression: Contusion of toe of right foot Instructions: How To Perform RICE (Rest, Ice, Compress, Elevate) Activity Restrictions/Additional Instructions: No fractures were noted on the x-rays today. You should continue to follow all of the postoperative instructions given to you by the orthopedic surgeon who fixed your Achilles tendon. You may develop some more bruising over the next couple days. I do recommend ice. Contact your orthopedic surgeon for follow-up. Prescriptions: No Action budesonide-formoterol [Symbicort] 160 MCG/4.5 MCG HFA aerosol inhaler 1 puff INH PRN Qty: 0 ALBUTEROL (PROVENTIL INHALER) 0.09 mg IH PRN Qty: 0 trazodone 100 MG tablet 100 mg PO HS Qty: 0 [VITAMIN D ] 2,000 iu PO QDAY Qty: 0 ibuprofen 800 MG tablet 800 mg PO PRN Qty: 0 atorvastatin [Lipitor] 20 mg Tablet 40 mg PO BEDTIME Qty: 60 2RF meclizine 12.5 mg Tablet 12.5 mg PO Q6HR Qty: 60 0RF aspirin 81 mg Tablet,Delayed Release (Dr/Ec) 81 mg PO DAILY Qty: 30 3RF cephalexin 500 mg capsule 500 mg PO Q8H Qty: 15 0RF Referrals: Mc De León DO [Primary Care Provider] - Stand Alone Forms: Patient Portal/API
[2024-05-17 20:08] VITALS: BP 166/74; PULSE 66; RESP 18; O2SAT 94
[2024-05-17 20:25] VITALS: BP 162/74; PULSE 60; RESP 17; O2SAT 97
--- NOTE | 2024-05-17 20:31 | PC.NURSE ---
Pt given CD of xrays. Rewrapped right lower leg/foot with cast padding, and 2-4 inch jozef wraps. CMS intact. Pt and spouse acknowledge instructions on care and use.
== END 2024-05-17 20:34 | disposition home or self-care (01) ==
PROVIDERS: Emergency Provider Emergency Medicine; PCP Family Medicine
DX: S90.121A Contusion of right lesser toe(s) without damage to nail, initial encounter (principal); W22.09XA Striking against other stationary object, initial encounter
CPT/HCPCS: 73610; 73630; 99281; 99283

== ENCOUNTER 2024-10-22 07:37 | Outpatient (CLI) | payer MEDICARE, OTHER, SELFPAY ==
[2022-12-09 17:30] VITALS: BMI 25.7
[2024-10-22] VITALS (16 sets, daily range): BP systolic 123–160; BP diastolic 56–77; PULSE 58–66; RESP 17–22; TEMP 36.9; O2SAT 92–100
--- NOTE | 2024-10-22 07:41 | DI.CT.S_ITS ---
PROCEDURE: CT BIOPSY BONE DEEP Sedation analgesia for 22 minutes. INDICATIONS: THROMBOCYTOPENIA TECHNIQUE: The indications, alternatives, benefits, risks, and possible complications of the procedure were communicated to the patient. Informed written consent from the patient was obtained and placed in the chart. Continuous EKG and hemodynamic monitoring was started by trained personnel. The patient was brought to the CT suite and condenser operator spiral CT imaging was performed with localization grid. The appropriate site for percutaneous access to the biopsy target was marked, was prepped and draped sterilely, and was infused with local anaesthesia. Under CT guidance, a core biopsy trocar and needle set was advanced to the biopsy target, and specimen(s) were obtained. The trocar and needle were then removed, and the patient was sent for post-procedure monitoring. COMPARISON: None. FINDINGS: Biopsy site: Right posterior iliac crest Needle: 14 gauge biopsy needle with introducer trocar. Number of passes: 5, after aspiration of 10 cc of marrow Medications: 1% lidocaine for local anaesthesia. 1 percent lidocaine and 0.5 percent bupivacaine for periosteal anesthesia. IV Fentanyl and Versed for conscious sedation for 0.2 minutes (see nursing record). Complications: None. IMPRESSION: Successful CT-guided biopsy of the right posterior iliac crest. Dictated by: Juan Diego Chaparro M.D. on 10/22/2024 at 13:45 Approved by: Juan Diego Chaparro M.D. on 10/22/2024 at 13:47
--- NOTE | 2024-10-22 08:26 | PATH_ITS ---
[facility] Accession Number: [id number] No. of containers..03 Tissue 04 Unknown Storage/container code(s) . 01 Material submitted: . PART A: bone marrow - BONE ASPIRATION PART B: bone marrow - BONE MARROW ASPIRATE PART C: bone marrow - BONE MARROW CORE . 01 Diagnosis: BONE MARROW BIOPSY, ASPIRATE CLOT, ASPIRATE SMEAR, TOUCH PREP: -Limited sample showing no morphologic or immunophenotypic evidence of a monoclonal plasma cell population or B-cell lymphoproliferative disorder, negative for increased blasts, <1% by CD34 immunostain. -Chromosome analysis and FISH panel studies for multiple myeloma and low-grade B-cell lymphoma pending. -See comment and microscopic description. - COMMENT: Concurrent flow cytometry analysis demonstrated no increased or definite aberrant blasts, and no monotypic B-cell or plasma cell populations, and no aberrant T-cells (see report for details: [id number]). - Chromosome analysis and FISH panel results will be reported in an addendum. Follow up and clinical correlation is recommended. - Preliminary results were discussed with Dr. Niya Garcia on 10/25/2024 [facility] 10/30/2024 1623 Local . 01 Electronically signed: . Isauro Morse MD, Pathologist NPI- [id number] . 01 Gross description: . A. Received in formalin with two patient identifiers and no site on jar, is bloody fluid with no solid tissue grossly identified. Specimen is sent to cytology for cell block creation in A1 in the hopes specimen survives processing. B. Received in formalin with two patient identifiers and no site on jar, are multiple fragments of hemorrhagic material aggregating to 2.4 x 0.7 x 0.1 cm. Filtered and submitted in B1. C. Received in formalin with two patient identifiers and right iliac wing, are multiple duke friable fragments of bone aggregating to 1.5 x 0.5 x 0.2 cm. Filtered and submitted entirely in C1 following decalcification in Immunocal. ([id number]) /MRV 10/23/2024 1817 Local . 01 Microscopic: . 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 - CBC RESULTS (10/22/2024): WBC: 3.0 K/uL (L) Abs. Neutrophils: K/uL HGB: 10.6 g/dL (L) HCT: 33.3 % (L) MCV: 83 fL PLT: 150 K/uL. Mild leukopenia and anemia. - PERIPHERAL BLOOD SMEAR: Not submitted. - BONE MARROW ASPIRATE SMEAR/TOUCH PREP MANUAL DIFFERENTIAL (%): Aspirate smears are hypocellular, hemodilute, and aspicular. Touch prep is hypocellular. The differential count was rendered on the touch prep slide. . - Blasts (0-2): 2 - Lymphocytes (5-15): 4 - Plasma cells (0-3): 4 - Promyelocytes (2-4): 4 - Myelocytes (8-16): 20 - Metamyelocytes (10-25): 13 - Bands / PMN's (16-32): 22 - Eosinophils (1-4): 3 - Basophils (0-2): 0 - Monocytes (0-2): 2 - Erythroids (16-32): 26 - M/E ratio (1.5-3.5): 2.5. - Erythropoiesis: Normal maturation. Granulopoiesis: Normal maturation and morphology. Megakaryopoiesis: Rare megs with normal morphology, too few to adequately evaluate for dysplasia/atypia. Blasts: No discretely increased population present. Plasma cells: Few plasma cells with unremarkable morphology. Iron stain: Storage iron and ring sideroblasts cannot be adequately assessed due to lack of marrow particles in a hypocellular sample. - In order to characterize this process more fully, immunohistochemical stains were indicated and performed on blocks B (clot section) and C (core biopsy), with adequate controls, see below for findings and interpretation. - CORE BIOPSY: Limited material consisting predominantly of fragmented bone and soft tissue, with small portion of marrow tissue with crush and aspiration artifact. Reticulin stain: No reticulin fibrosis present on limited sample. Cellularity: Marrow tissue too small for accurate determination of cellularity. Erythroid cells: Normal number and distribution. Myeloid cells: Normal number and distribution. Megakaryocytes: Lack of preserved megakaryocytes for adequate evaluation. Blasts: <1% blasts as highlighted by CD34 immunostain. Plasma cells: CD138 highlights 2% interstitial plasma cells. Due to limited tissue and plasma cells, and non-specific staining, characterization by kappa and lambda immunostains is precluded. Granulomata: Minute lipogranulomas seen. Lymphocytes: Negative for discrete lymphoid aggregates. CD3 highlights 6-8% scattered interstitial T-cells, while PAX-5 highlights 2% scattered interstitial B-cells. - ASPIRATE CLOT: Limited marrow tissue consisting of two small marrow particles with 20% cellularity and normal M:E ratio of 2-2.5:1. Few megakaryocytes are present with normal morphology and distribution. Plasma cells: CD138 highlights 2-3% scattered interstitial plasma cells, polyclonal by kappa and lambda immunostains (kappa:lambda ratio is 1:1). Lymphocytes: CD3 highlights 8-10% scattered interstitial T-cells, while PAX-5 highlights 2-3% scattered B-cells. Iron stain: Storage iron negative on limited sample. Note that this material is too limited to be considered sufficiently sales and merchandising representative. - As part of ongoing it quality assurance analyst, select slides were reviewed by Dr. Sonny Garza who agrees with the interpretation. Technical Note: The immunohistochemical stains reported were performed at [facility] ([address] [place], [place] [address]e [address], [facility] [address]). This test was developed, and the performance characteristics were validated by [facility]. It has not been cleared or approved by the Food and Drug Administration. . 01 Pathologist provided ICD-10: D47.2 . 01 CPT . 965476, 145770, 021229, 128263, 122919, 226652, U60963, P19682 Specimen Comment: A courtesy copy of this report has been sent to [phone] Performed at: [address], [place], [place] [id number] MD Lalit Padron MD Phone: [phone]
[2024-10-22 08:37] LABS: Hematocrit 33.3 % (36-46); Hemoglobin 10.6 g/dL (12.0-16.0); Mean Corpuscular HGB Conc 31.9 % (30-36); Mean Corpuscular Hemoglobin 26.6 PG (26-34); Mean Corpuscular Volume 83.4 fL (80-100); Platelet Count 150 X10^3/uL (150-400); Red Blood Cell Count 3.99 X10^6/uL (4.0-5.2); Red Cell Distribution Width 16.9 % (11.6-14.8)
[2024-10-22 09:04] LABS: Prothrombin Time 11.8 SECONDS (9.4-12.5)
[2024-10-22] MEDS: MIDAZOLAM 2 MG/2 ML VIAL 0.5 MG IV (09:15)
[2024-10-22] MEDS: fentaNYL 100 MCG/2 ML INJ 25 MCG IV (09:15)
[2024-10-22] MEDS: BUPIVACAINE 0.25% MDV 5 ML INJ (09:25)
[2024-10-22] MEDS: LIDOCAINE 1% 20 ML 15 ML INJ (09:25)
== END 2024-10-22 11:45 | disposition home or self-care (01) ==
LOC: CT 07:40
PROVIDERS: Radiology Diagnostic Radiology; PCP Family Medicine; Referring Provider Internal Medicine Medical Oncology; Visit Provider Internal Medicine Medical Oncology
DX: D69.6 Thrombocytopenia, unspecified (principal); D64.9 Anemia, unspecified
CPT/HCPCS: 20225; 77012; 85027; 85610; 99152; J2250; J3010

== ENCOUNTER → 2025-01-21 15:22 | Outpatient (CLI) | payer MEDICARE, OTHER, SELFPAY ==
[2022-12-09 17:30] VITALS: BMI 25.7
[2025-01-21 16:22] LABS: Add Manual Diff / Slide Review NO; Basophils Absolute Auto 0 /uL (0-100); Basophils Percent Auto 0.8 % (0-2); Eosinophils Absolute Auto 200 /uL (0-450); Eosinophils Percent Auto 3.7 % (2-4); Hematocrit 36.9 % (36-46); Hemoglobin 11.8 g/dL (12.0-16.0); Lymphocytes Absolute Auto 1400 /uL (1100-4500); Mean Corpuscular Hemoglobin 27.6 PG (26-34); Mean Corpuscular Volume 86.2 fL (80-100); Monocytes Absolute Auto 600 /uL (0-900); Monocytes Percent Auto 11.1 % (3-14); Neutrophils Absolute Auto 2800 /uL (1500-7000); Neutrophils Percent Auto 55.4 % (50-75); Platelet Count 109 X10^3/uL (150-400); Red Blood Cell Count 4.27 X10^6/uL (4.0-5.2); Red Cell Distribution Width 19.2 % (11.6-14.8)
== END ==
PROVIDERS: PCP Family Medicine; Referring Provider Student in an Organized Health Care Education/Training Program; Visit Provider Student in an Organized Health Care Education/Training Program
DX: J43.2 Centrilobular emphysema (principal); R06.02 Shortness of breath
CPT/HCPCS: 36415; 85025; 99214

== ENCOUNTER 2025-01-23 17:33 | Emergency (ER) | payer MEDICARE, OTHER, SELFPAY ==
[2022-12-09 17:30] VITALS: BMI 25.7
[2025-01-23] VITALS (25 sets, daily range): BP systolic 126–182; BP diastolic 59–88; PULSE 38–62; RESP 12–43; TEMP 36.6; O2SAT 91–100; BMI 22.3
--- NOTE | 2025-01-23 17:44 | DI.RAD.S_ITS ---
PROCEDURE: XR CHEST 1V INDICATIONS: chest pain TECHNIQUE: One view of the chest was acquired. COMPARISON: Outside Facility, CR, XR CHEST 1V, 01/12/2025, 17:14. FINDINGS: Surgical changes and devices: None. Lungs and pleura: Lungs are clear. No pleural effusions or pneumothorax. Mediastinum: Mediastinal contours appear normal. Heart size is normal. Bones and chest wall: No suspicious bony lesions. Overlying soft tissues appear unremarkable. IMPRESSION: No acute cardiopulmonary pathology. Dictated by: Mahad Tillman M.D. on 01/23/2025 at 18:29 Approved by: Mahad Tillman M.D. on 01/23/2025 at 18:30
--- NOTE | 2025-01-23 17:44 | EKG_ITS ---
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
--- NOTE | 2025-01-23 18:14 | PC.NURSE ---
while obtaining IV access pt HR decreased from 54 to 38. Pt is drowsy, states she feels weak, and endorsing chest pain. EKG obtained. 1st degree block. code cart in room and pads applied. Dr Santizo made aware. no new orders
[2025-01-23 18:17] LABS: Add Manual Diff / Slide Review NO; Basophils Absolute Auto 0 /uL (0-100); Basophils Percent Auto 1.2 % (0-2); Eosinophils Absolute Auto 0 /uL (0-450); Eosinophils Percent Auto 0.6 % (2-4); Hematocrit 36.6 % (36-46); Hemoglobin 11.9 g/dL (12.0-16.0); Lymphocytes Absolute Auto 500 /uL (1100-4500); Lymphocytes Percent Auto 21.3 % (25-40); Mean Corpuscular HGB Conc 32.6 % (30-36); Mean Corpuscular Hemoglobin 27.9 PG (26-34); Mean Corpuscular Volume 85.5 fL (80-100); Monocytes Absolute Auto 100 /uL (0-900); Monocytes Percent Auto 3.4 % (3-14); Neutrophils Absolute Auto 1600 /uL (1500-7000); Neutrophils Percent Auto 73.5 % (50-75); Platelet Count 107 X10^3/uL (150-400); Red Blood Cell Count 4.28 X10^6/uL (4.0-5.2); Red Cell Distribution Width 18.6 % (11.6-14.8); White Blood Cell Count 2.2 X10^3/uL (4.5-11.0)
--- NOTE | 2025-01-23 18:22 | ED.CHESTPAIN ---
HPI - Chest Pain General Chief Complaint: Chest Pain Stated Complaint: left side and chest px Time Seen by Provider: 01/23/25 18:12 Source: patient Mode of arrival: Wheelchair Limitations: no limitations History of Present Illness HPI narrative: 79-year-old female with no known CAD, reports stomach bleeding episode in surgery June 2024 treated at [facility] with surgeon Dr. Lam, was in the hospital there for 7 days and then discharged, recalls seeing the surgeon in follow up, more recently she has been having shortness of breath and chest discomfort with repeated visits she reports over the last couple of weeks at [facility], complains of 2 hours duration of substernal epigastric area discomfort this morning, with some generalized weakness. No focal weakness or numbness. No nausea or vomiting today. No black or red stools recent. No cough fevers or chills. Related Data Home Medications Medication Instructions Recorded Confirmed ALBUTEROL (PROVENTIL INHALER) 0.09 mg IH PRN ##0 12/13/11 01/21/25 trazodone 100 mg tablet 150 mg PO HS ##0 12/15/11 01/23/25 ibuprofen 800 mg tablet 800 mg PO PRN ##0 11/17/12 01/21/25 acyclovir 400 mg tablet 400 mg PO DAILY 01/23/25 01/23/25 dicyclomine 20 mg tablet 20 mg PO BID 01/23/25 01/23/25 Previous Rx's Medication Instructions Recorded atorvastatin 20 mg tablet (Lipitor) 40 mg (2 x 20 mg) PO BEDTIME #60 12/10/22 tabs fluticasone fur. 200 mcg-umeclid 1 inh inhalation DAILY #60 ea 01/21/25 62.5 mcg-vilant 25 mcg inhalat.powder (Trelegy Ellipta) prednisone 20 mg tablet 40 mg (2 x 20 mg) PO DAILY #20 tabs 01/21/25 Allergies Allergy/AdvReac Type Severity Reaction Status Date / Time Sulfa (Sulfonamide Allergy Verified 01/21/25 14:35 Antibiotics) Patient History Medical History (Updated 01/23/25 @ 23:05 by Kirby Santizo MD) Centrilobular emphysema Shortness of breath Family History (Updated 12/09/22 @ 16:53 by Luis John MD) Other Family history of cerebrovascular accident (CVA) in father Social History household members: spouse Smoking Status: Former smoker alcohol intake: current Smoking Status: Former smoker alcohol intake frequency: 0-2 drinks per day Exam Narrative Exam Narrative: GENERAL: Well-developed patient, in mild distress. HEAD: Atraumatic. Normocephalic. EYES: Pupils equal round and reactive. Extraocular motions intact. No scleral icterus. No injection or drainage. ENT: Nose without bleeding, purulent drainage. Throat without erythema, tonsillar hypertrophy or exudate. Airway patent. Left posterior draw postsurgical excision changes, with inability to fully close her left eye after the surgery as a complication NECK: Trachea midline. Non tender CARDIOVASCULAR: Regular rate and rhythm without murmurs, gallops, or rubs. RESPIRATORY: Clear to auscultation. Breath sounds equal bilaterally. No wheezes, rales, or rhonchi. GASTROINTESTINAL: Abdomen soft, non-tender, nondistended. EXTREMITIES: No edema or joint tenderness. BACK: Nontender without deformity or crepitance. No flank tenderness. NEURO: AOx3. Motor functions grossly nonfocal SKIN: No rash or erythema of visible areas Initial Vital Signs Initial Vital Signs: Vital Signs Temperature 97.8 F 01/23/25 17:44 Pulse Rate 58 L 01/23/25 17:44 Respiratory Rate 18 01/23/25 17:44 Blood Pressure 126/59 L 01/23/25 17:44 Pulse Oximetry 97 01/23/25 17:44 Oxygen Delivery Method Room Air 01/23/25 17:44 Course Orders Ordered: ED Orders 01/23/25 18:06 Complete Blood Count AUTO DIFF Stat Comprehensive Metabolic Panel Stat Lipase Stat Magnesium Stat NT-proBNP (BNP-Adult 18+) Stat PTT Partial Thromboplastin Ulises Stat Prothrombin Time INR Stat TSH [Thyroid Stimulating Hormone] Stat Troponin & CK Cardiac Panel Stat 01/23/25 18:24 CT abdomen pelvis w con Stat CT angio chest PE protocol Stat 01/23/25 20:56 EKG-12 Lead Stat 01/23/25 21:00 Troponin I Stat Discontinued Medications Aspirin (Aspirin 81 Mg Chew Tab) 324 mg PO NOW ONE Stop: 01/23/25 17:45 Last Admin: 01/23/25 18:33 Dose: 324 mg Documented By: CTS Atropine Sulfate (Atropine 1 Mg/10 Ml Syringe) 0.5 mg IV NOW ONE Stop: 01/23/25 21:24 Last Admin: 01/23/25 21:31 Dose: 0.5 mg Documented By: JANINE Sodium Chloride (Normal Saline 0.9%) 1,000 mls @ 1,000 mls/hr IV BOLUS ONE Stop: 01/23/25 19:24 Last Infusion: 01/23/25 21:35 Dose: Infused Documented By: Admin: 01/23/25 18:32 Dose: 1,000 mls/hr Documented By: KATHRINE Morphine Sulfate (Morphine 4 Mg/Ml Inj) 4 mg IV NOW ONE Stop: 01/23/25 18:26 Last Admin: 01/23/25 18:33 Dose: 4 mg Documented By: KATHRINE Ondansetron HCl (Ondansetron 4 Mg/2 Ml Inj) 4 mg IV NOW ONE Stop: 01/23/25 18:26 Last Admin: 01/23/25 18:32 Dose: 4 mg Documented By: KATHRINE Pantoprazole Sodium (Pantoprazole 40 Mg Vial) 80 mg IV NOW ONE Stop: 01/23/25 18:26 Last Admin: 01/23/25 18:32 Dose: 80 mg Documented By: KATHRINE Vital Signs Vital signs: Vital Signs - 8 hr 01/23/25 18:57 01/23/25 19:00 01/23/25 19:09 Pulse Rate 41 L Respiratory Rate 19 Blood Pressure 178/79 H 161/69 H Pulse Oximetry 100 01/23/25 19:10 01/23/25 19:10 01/23/25 19:15 Pulse Rate 40 L Respiratory Rate 18 Blood Pressure 160/72 H 159/72 H Pulse Oximetry 98 01/23/25 19:15 01/23/25 19:30 01/23/25 19:30 Pulse Rate 53 L 42 L Respiratory Rate 43 H 14 Blood Pressure 150/68 H Pulse Oximetry 91 99 01/23/25 19:45 01/23/25 19:45 01/23/25 20:00 Pulse Rate 50 L Respiratory Rate 15 Blood Pressure 128/61 128/62 Pulse Oximetry 93 01/23/25 20:00 01/23/25 20:15 01/23/25 20:15 Pulse Rate 52 L 47 L Respiratory Rate 20 19 Blood Pressure 146/72 H Pulse Oximetry 93 98 01/23/25 20:30 01/23/25 20:30 01/23/25 20:45 Pulse Rate 45 L Respiratory Rate 17 Blood Pressure 153/68 H 150/71 H Pulse Oximetry 99 01/23/25 20:45 01/23/25 21:00 01/23/25 21:15 Pulse Rate 41 L Respiratory Rate 21 Blood Pressure 170/77 H 170/74 H Pulse Oximetry 99 01/23/25 21:15 01/23/25 21:30 01/23/25 21:30 Pulse Rate 38 L 39 L Respiratory Rate 18 18 Blood Pressure 171/72 H Pulse Oximetry 100 100 01/23/25 21:46 01/23/25 21:46 01/23/25 22:00 Pulse Rate 61 Respiratory Rate 22 Blood Pressure 182/88 H 160/77 H Pulse Oximetry 98 01/23/25 22:00 01/23/25 22:15 01/23/25 22:15 Pulse Rate 62 55 L Respiratory Rate 20 17 Blood Pressure 155/73 H Pulse Oximetry 98 96 01/23/25 22:30 01/23/25 22:30 01/23/25 22:45 Pulse Rate 55 L 54 L Respiratory Rate 12 19 Blood Pressure 156/77 H Pulse Oximetry 96 94 01/23/25 22:45 01/23/25 23:00 01/23/25 23:00 Pulse Rate 52 L Respiratory Rate 20 Blood Pressure 133/69 165/79 H Pulse Oximetry 99 MDM - Chest Pain Lab Data Lab results narrative: White blood cell count 10/28/1999, hemoglobin 11.9, platelets adequate. Glucose 121. Basic metabolic panel unremarkable. Slight elevations alkaline phosphatase and transaminases, T bili normal. Lipase normal. 01/23/25 18:06 01/23/25 18:06 Labs: Lab Results 01/23/25 01/23/25 Range/Units 18:06 21:00 WBC 2.2 L (4.5-11.0) X10^3/uL RBC 4.28 (4.0-5.2) X10^6/uL Hgb 11.9 L (12.0-16.0) g/dL Hct 36.6 (36-46) % MCV 85.5 (80-100) fL MCH 27.9 (26-34) PG MCHC 32.6 (30-36) % RDW 18.6 H (11.6-14.8) % Plt Count 107 L (150-400) X10^3/uL Neut % (Auto) 73.5 (50-75) % Lymph % (Auto) 21.3 L (25-40) % Ellis % (Auto) 3.4 (3-14) % Eos % (Auto) 0.6 L (2-4) % Baso % (Auto) 1.2 (0-2) % Neut # (Auto) 1600 (2938-6049) /uL Lymph # (Auto) 500 L (4945-2850) /uL Ellis # (Auto) 100 (0-900) /uL Eos # (Auto) 0 (0-450) /uL Baso # (Auto) 0 (0-100) /uL PT 11.0 (9.4-12.5) SECONDS INR 1.0 (0.9-1.3) APTT 31 (25.1-36.5) SECONDS Sodium 135 L (137-145) mmol/L Potassium 4.7 (3.4-5.1) mmol/L Chloride 104 (98-107) mmol/L Carbon Dioxide 25 (22-32) mmol/L BUN 11 (7-17) mg/dL Creatinine 0.70 (0.52-1.04) mg/dL Estimated GFR > 60 (>60) mL/min BUN/Creatinine Ratio 15.7 (6-22) Glucose 121 H (70-99) mg/dL Calcium 9.5 (8.4-10.2) mg/dL Magnesium 2.0 (1.6-2.3) mg/dL Total Bilirubin 0.9 (0.2-1.3) mg/dL AST 66 H (14-36) IU/L ALT 52 H (<35) IU/L Alkaline Phosphatase 255 H (38-126) U/L Total Creatine Kinase 31 (30-135) U/L Troponin I < 0.012 < 0.012 (0.01-0.034) ng/mL NT-Pro-B Natriuret Pep 176 (<450) pg/mL Total Protein 6.9 (6.3-8.2) g/dL Albumin 4.1 (3.5-5.0) g/dL Globulin 2.8 (1.7-4.1) g/dL Albumin/Globulin Ratio 1.5 (1.0-2.8) Lipase 63 (23-300) U/L TSH 1.46 (0.47-4.68) uIU/mL Imaging Data Chest x-ray: Radiologist's Impression: [address] [address] XRay Report Signed Patient: Darshana Rice MR#: [id number] : 1945 Acct:[id number] Age/Sex: 79 / F Date of Service: 01/23/25 Loc: ED Accession Number: [id number] Procedure: XR chest 1V Ordering Provider: Tom Hearn MD PROCEDURE: XR CHEST 1V INDICATIONS: chest pain TECHNIQUE: One view of the chest was acquired. COMPARISON: Outside Facility, CR, XR CHEST 1V, 01/12/2025, 17:14. FINDINGS: Surgical changes and devices: None. Lungs and pleura: Lungs are clear. No pleural effusions or pneumothorax. Mediastinum: Mediastinal contours appear normal. Heart size is normal. Bones and chest wall: No suspicious bony lesions. Overlying soft tissues appear unremarkable. IMPRESSION: No acute cardiopulmonary pathology. Dictated by: Mahad Tillman M.D. on 01/23/2025 at 18:29 Approved by: Mahad Tillman M.D. on 01/23/2025 at 18:30 CT angiogram chest: Radiologist's Impression: [address] [address] [address] Scan Report Signed Patient: Darshana Rice MR#: [id number] : 1945 Acct:[id number] Age/Sex: 79 / F Date of Service: 01/23/25 Loc: ED Accession Number: [id number] Procedure: CT angio chest PE protocol Ordering Provider: Kirby Santizo MD PROCEDURE: CT ANGIO CHEST PE PROTOCOL INDICATIONS: chest pain TECHNIQUE: After the administration of intravenous contrast, 2 mm thick sections acquired from the pulmonary apices to the posterior costophrenic angles. 3-dimensional maximum intensity projection (MIP) coronal and sagittal reformats were then acquired through the thorax. For radiation dose reduction, the following was used: automated exposure control, adjustment of mA and/or kV according to patient size. COMPARISON: Outside Facility, CT, CT ANGIO CHEST, 01/12/2025, 20:22. FINDINGS: Image quality: Diagnostic. Pulmonary arteries: Pulmonary arteries are normal in size, and demonstrate no intraluminal filling defects to suggest central pulmonary embolism. Lower Neck: No enlarged lymph nodes. Thyroid: No thyroid nodules which require sonographic follow up, per consensus guidelines. Axillae: No enlarged lymph nodes. Chest Wall: Unremarkable. Bones: No aggressive appearing bony lesions. No acute vertebral body compression fracture. Lungs and Pleura: There is no pleural effusion or pneumothorax. Reticular nodular thickening in periphery of bilateral lung montejo are noted. Hazy ground-glass opacities also noted in bilateral lung montejo more notably in bilateral lower lobes. No acute airspace opacities. Previous CT finding of subtle ground-glass density nodules are less well seen due to worsening of pulmonary edema. Heart: Heart size is enlarged. No pericardial effusion. Thoracic Vessels: No Thoracic aortic aneurysm. Moderate to severe 3 vessel coronary artery atherosclerotic calcifications are seen. Mediastinum and Lucia: No enlarged lymph nodes. Esophagus: No wall thickening. No significant hiatal hernia. Upper Abdomen: Please correlate with CT of abdomen and pelvis findings from the same day. IMPRESSION: 1. No pulmonary embolus. No thoracic aortic aneurysm. Cardiomegaly, no pericardial effusion . No mediastinal or hilar lymphadenopathy. 2. Interval worsening of interstitial pulmonary edema and pulmonary vascular congestion. No pleural effusion or pneumothorax. No definite pulmonary nodule or mass is seen. Dictated by: Mahad Tillman M.D. on 01/23/2025 at 19:27 Approved by: Mahad Tillman M.D. on 01/23/2025 at 19:36 CT scan - abdomen/pelvis: Radiologist's Impression: [place] [address] CT Scan Report Signed Patient: Darshana Rice MR#: [id number] : 1945 Acct:[id number] Age/Sex: 79 / F Date of Service: 01/23/25 Loc: ED Accession Number: [id number] Procedure: CT abdomen pelvis w con Ordering Provider: Kirby Santizo MD PROCEDURE: CT ABDOMEN PELVIS W CON INDICATIONS: upper abd pain, gastric perf 06/2024 TECHNIQUE: After the administration of intravenous contrast, axial sections acquired from the lung bases to the pubic symphysis. Coronal and sagittal reformats were performed. For radiation dose reduction, the following was used: automated exposure control, adjustment of mA and/or kV according to patient size. COMPARISON: Outside Facility, CT, CT ANGIO CHEST, 01/12/2025, 20:22. FINDINGS: Image quality: Diagnostic. Lower Chest: Please correlate with CT angiogram of chest findings from the same day. ABDOMEN: Liver: No solid mass. Gallbladder: Gallbladder is surgically absent. Biliary ducts: No biliary dilation. Pancreas: No ductal dilation. Spleen: There is splenomegaly, no discrete splenic lesion. Adrenal Glands: No adrenal nodules. Kidneys and Ureters: No hydronephrosis. No solid mass. No complex renal cystic lesion which requires follow up. Stomach and Bowel: There is no bowel obstruction. No gastric or small bowel wall thickening. Appendix is not definitively visualized. No focal inflammatory changes are seen in right lower quadrant. Colonic diverticulosis without CT evidence of acute diverticulitis. No abscess collection. Peritoneum: No abnormal intraperitoneal fluid. No free air. Ventral Wall: No significant ventral hernia. Abdominal Nodes: No retroperitoneal or mesenteric adenopathy by size criteria. Vessels: Fusiform infrarenal abdominal aortic aneurysm is seen measures up to 4.2 x 3.9 cm in largest transverse and AP diameter series 2, image 58. Moderate atherosclerotic calcifications are noted throughout abdominal aorta and bilateral iliac arteries. PELVIS: Pelvic Organs: Unremarkable. Bladder: No bladder wall thickening, accounting for underdistention. Pelvic Nodes: No enlarged lymph nodes. Miscellaneous: No inguinal hernias are seen. Bones: No aggressive osseous abnormality. 5 mm anterolisthesis of L4 on L5 is seen. IMPRESSION: 1. Fusiform infrarenal abdominal aortic aneurysm measures up to 4.2 x 3.9 cm in largest transverse and AP diameter. No evidence of rupture. Moderate atherosclerotic disease. 2. No bowel obstruction or abnormal bowel wall thickening. No abscess collection. No free fluid or free air. Colonic diverticulosis without CT evidence of acute diverticulitis. No secondary CT signs of acute appendicitis. 3. No obstructing renal stones or hydronephrosis. 4. Splenomegaly, no discrete splenic lesion. Prior cholecystectomy. Dictated by: Mahad Tillman M.D. on 01/23/2025 at 19:36 Approved by: Mahad Tillman M.D. on 01/23/2025 at 19:39 ECG Data Attestation: I personally reviewed and interpreted this ECG as follows: Interpretation: #1, Sinus bradycardia with rate of 47, no obvious ST segment elevation or depression changes. First-degree AV block, AR 216. QRS 78. QTC 394. #2, Sinus bradycardia rate of 39, no obvious ST segment elevation or depression changes. AR 204, QRS 76, QTC 413. MDM Narrative Medical decision making narrative: 79-year-old female with history of gastric perforation bleeding June 2024 treated at [facility], having ongoing shortness of breath with recent reported visits to [facility] unclear diagnosis, now having 2 hours duration of low substernal area chest discomfort and epigastric pain, no nausea or vomiting. No black or red stools. Afebrile, sirs screen negative. No chest wall tenderness. Lungs clear. No respiratory distress. Sinus bradycardia noted with first-degree AV block. Normotensive however. Pacer pads placed. Heart rate dipped to upper 30s low 40s, normotensive, generalized weakness, IV atropine 0.5 mg single dose. Patient had response increased heart rate to 50-70 range, felt better, normotensive. Initial troponin negative. We will repeat interval study. Chest x-ray, no acute changes. See radiology report. CT angiogram chest, no pulmonary embolus, no acute changes. See radiology report. CT abdomen and pelvis, no acute changes. See radiology report. Interval troponin also negative/unmeasurable. Heart rate still improved, 50-60 range. We discussed imaging findings. We discussed blood tests and EKG, no evidence of heart attack at this time. We discussed options for follow up given her symptomatic bradycardia, she does not want to have any further evaluation at this time. Specifically we discussed transfer to Cardiology capable facility, declined. We discussed hospital admission here on telemetry, declined. We discussed further observation here in the emergency department, declined. She would like to go home now, home with her at bedside, who did not contest her decision. They stated that they live nearby and would return if they have any problems. Advised to continue current same medication regimen for now. Encouraged close follow up with the regular doctor, further workup of imaging findings and cardiac issues as an outpatient for now. Return precautions discussed. Discharged home per patient request. Discharge Plan Departure Patient Disposition: Home Clinical Impression: Generalized weakness, Chest pain, Sinus bradycardia, Aortic aneurysm Instructions: DI for Chest Pain, DI for Bradycardia Activity Restrictions/Additional Instructions: Chest pain of unclear cause. 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 You did not seem to be on any listed medications that are known to slow your heart rate down. You had a history of severe stomach rupture fall 2023. CT scan chest showed no blood clots to the lungs, normal aorta in the thoracic cavity. CT scanning of the abdomen showed aortic aneurysm in the abdominal part, which you reported that you knew about, not at a critically wide diameter to warrants emergent surgical intervention at this time. No emergent findings on scanning at this time. EKG and serial blood tests not suggestive of heart attack at this time. Heart rate improved with the single IV atropine dose as above. We discussed urgent transfer to a director of sales and marketing capable facility, declined. We discussed hospital admission for further telemetry monitoring at the hospital here, declined. We discussed further observation 2-4-6 or more hours overnight in the emergency department, declined. You felt better and you wanted to go home now. You stated that you would return if you felt similarly. Follow up with your regular doctor advised in the next couple of days. Consider cardiology follow up for further testing as an outpatient for now, contact information given for director of sales and marketing on-call, though you might require referral from your primary care provider. Return earlier to this/nearest emergency department for any change worsening symptoms or any concerns prior. Copies of your chest x-ray, CT angiogram of the chest, CT abdomen and pelvis studies were given, with a discussion of the findings. Prescriptions: No Action ALBUTEROL (PROVENTIL INHALER) 0.09 mg IH PRN Qty: 0 trazodone 100 MG tablet 150 mg PO HS Qty: 0 ibuprofen 800 MG tablet 800 mg PO PRN Qty: 0 atorvastatin [Lipitor] 20 mg Tablet 40 mg PO BEDTIME Qty: 60 2RF acyclovir 400 mg tablet 400 mg PO DAILY dicyclomine 20 mg tablet 20 mg PO BID prednisone 20 mg tablet 40 mg PO DAILY Qty: 20 0RF Trelegy Ellipta 200-62.5-25 mcg blister with device 1 inh inhalation DAILY Qty: 60 5RF Referrals: Frank Mcarthur MD [Primary Care Provider] - Martha Ureña DO [Physician] - Stand Alone Forms: Patient Portal/API/Survey
[2025-01-23 18:27] LABS: PTT Partial Thromboplastin Tim 31 SECONDS (25.1-36.5)
[2025-01-23 18:31] LABS: Alanine Aminotransferase 52 IU/L (<35); Albumin 4.1 g/dL (3.5-5.0); Albumin Globulin Ratio 1.5 (1.0-2.8); Alkaline Phosphatase 255 U/L (38-126); Aspartate Aminotransferase 66 IU/L (14-36); BUN Creatinine Ratio 15.7 (6-22); Bilirubin Total 0.9 mg/dL (0.2-1.3); Blood Urea Nitrogen 11 mg/dL (7-17); Calcium 9.5 mg/dL (8.4-10.2); Carbon Dioxide 25 mmol/L (22-32); Chloride 104 mmol/L (98-107); Creatine Kinase 31 U/L (30-135); Estimated Glomerular Filt Rate > 60 mL/min (>60); Globulin 2.8 g/dL (1.7-4.1); Glucose 121 mg/dL (70-99); HEMOLYSIS < 15 (0-50); Lipase 63 U/L (23-300); Potassium 4.7 mmol/L (3.4-5.1); Sodium 135 mmol/L (137-145); Total Protein 6.9 g/dL (6.3-8.2)
[2025-01-23] MEDS: SODIUM CHLORIDE 0.9% 1,000 ML 1000 ML IV (18:32)
[2025-01-23] MEDS: PANTOPRAZOLE 40 MG VIAL 80 MG IV (18:32)
[2025-01-23] MEDS: ONDANSETRON 4 MG/2 ML INJ IV (18:32)
[2025-01-23] MEDS: ASPIRIN 81 MG CHEW TAB 324 MG PO (18:33)
[2025-01-23] MEDS: MORPHINE 4 MG/ML INJ IV (18:33)
[2025-01-23 18:42] LABS: NT-proBNP (BNP-Adult 18+) 176 pg/mL (<450); Troponin I < 0.012 ng/mL (0.01-0.034)
--- NOTE | 2025-01-23 20:56 | EKG_ITS ---
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
[2025-01-23 21:30] LABS: Troponin I < 0.012 ng/mL (0.01-0.034)
[2025-01-23] MEDS: ATROPINE 1 MG/10 ML SYRINGE 0.5 MG IV (21:31)
[2025-01-23 22:49] LABS: Thyroid Stimulating Hormone 1.46 uIU/mL (0.47-4.68)
== END 2025-01-23 23:35 | disposition home or self-care (01) ==
PROVIDERS: Emergency Medicine; Emergency Provider Emergency Medicine; PCP Family Medicine
DX: R07.9 Chest pain, unspecified (principal); R53.1 Weakness; R00.1 Bradycardia, unspecified; I71.43 Infrarenal abdominal aortic aneurysm, without rupture; I44.0 Atrioventricular block, first degree
CPT/HCPCS: 36415; 71045; 71275; 74177; 80053; 82550; 83690; 83735; 83880; 84443; 84484; 85025; 85610; 85730; 93005; 96361; 96374; 96375; 99284; J0461; J2270; J2405; J2470; Q9967

== ENCOUNTER 2025-03-26 22:33 | Emergency (ER) | payer MEDICARE, OTHER, SELFPAY ==
[2022-12-09 17:30] VITALS: BMI 25.7
[2025-03-26 22:12] VITALS: BP 167/73; PULSE 56; RESP 15; TEMP 36.7; O2SAT 100; BMI 21.6
[2025-03-26 22:15] VITALS: BP 167/73; PULSE 57; RESP 20; O2SAT 100
[2025-03-26 22:30] VITALS: BP 138/65; PULSE 56; RESP 21; O2SAT 100
--- NOTE | 2025-03-26 22:43 | EKG_ITS ---
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
--- NOTE | 2025-03-26 22:43 | DI.RAD.S_ITS ---
PROCEDURE: XR CHEST 1V INDICATIONS: Chest Pain, hx of known AAA TECHNIQUE: One view of the chest was acquired. COMPARISON: [facility], CR, XR CHEST 1V, 01/23/2025, 17:52. FINDINGS: Surgical changes and devices: None. Lungs and pleura: Lungs are clear. No pleural effusions or pneumothorax. Mediastinum: Mediastinal contours appear normal. Heart size is normal. Bones and chest wall: No suspicious bony lesions. Overlying soft tissues appear unremarkable. IMPRESSION: No acute cardiopulmonary abnormality is seen. Approved by: Sophie Meredith M.D.,Ph.D. on 03/26/2025 at 23:35
[2025-03-26 22:59] LABS: INR 1.0 (0.9-1.3); Prothrombin Time 11.6 SECONDS (9.4-12.5)
[2025-03-26 23:00] VITALS: BP 134/63; PULSE 58; RESP 20; O2SAT 99
[2025-03-26 23:01] LABS: PTT Partial Thromboplastin Tim 32 SECONDS (25.1-36.5)
[2025-03-26 23:02] LABS: Add Manual Diff / Slide Review NO; Hematocrit 33.2 % (36-46); Hemoglobin 10.9 g/dL (12.0-16.0); Lymphocytes Absolute Auto 1400 /uL (1100-4500); Mean Corpuscular HGB Conc 32.7 % (30-36); Mean Corpuscular Hemoglobin 28.9 PG (26-34); Mean Corpuscular Volume 88.3 fL (80-100); Platelet Count 139 X10^3/uL (150-400)
[2025-03-26 23:15] LABS: Alanine Aminotransferase 31 IU/L (<35); Albumin 3.8 g/dL (3.5-5.0); Albumin Globulin Ratio 1.3 (1.0-2.8); Alkaline Phosphatase 345 U/L (38-126); Blood Urea Nitrogen 9 mg/dL (7-17); Calcium 8.9 mg/dL (8.4-10.2); Carbon Dioxide 25 mmol/L (22-32); Chloride 104 mmol/L (98-107); Creatine Kinase 33 U/L (30-135); Estimated Glomerular Filt Rate > 60 mL/min (>60); Globulin 2.9 g/dL (1.7-4.1); Glucose 95 mg/dL (70-99); HEMOLYSIS 20 (0-50); Lipase 116 U/L (23-300); Magnesium 1.9 mg/dL (1.6-2.3); Potassium 3.6 mmol/L (3.4-5.1); Sodium 137 mmol/L (137-145); Total Protein 6.7 g/dL (6.3-8.2)
[2025-03-26 23:26] LABS: NT-proBNP (BNP-Adult 18+) 80 pg/mL (<450); Troponin I < 0.012 ng/mL (0.01-0.034)
[2025-03-26 23:30] VITALS: BP 148/66; PULSE 59; RESP 20; O2SAT 97
[2025-03-27 00:15] VITALS: BP 145/67; PULSE 63; RESP 19; O2SAT 98
--- NOTE | 2025-03-27 01:02 | ED.CHESTPAIN ---
HPI - Chest Pain General Chief Complaint: Chest Pain Stated Complaint: chest pain Time Seen by Provider: 03/26/25 23:12 Source: EMS Mode of arrival: EMS Limitations: no limitations History of Present Illness HPI narrative: 79-year-old female complains of ongoing chronic cough, former smoker, not usually on oxygen, has had consultation with area credit support specialist's, frequently as prescribed prednisone pulses, not on chronic daily oral steroid, does take inhaled steroid, having recent increased productive cough. Had oral steroid last prescribed late February 2025, does not want any further systemic steroid treatment. She continues to use her inhaled bronchodilator and topical inhaled steroid. Currently not on any systemic anti allergy medication. Admits to chest discomfort with cough, otherwise denies chest discomfort. Related Data Home Medications ?Medication ?Instructions ?Recorded ?Confirmed ALBUTEROL (PROVENTIL INHALER) 0.09 mg IH PRN ##0 12/13/11 03/26/25 trazodone 100 mg tablet 150 mg PO HS ##0 12/15/11 03/26/25 ibuprofen 800 mg tablet 800 mg PO PRN ##0 11/17/12 03/26/25 acyclovir 400 mg tablet 400 mg PO DAILY 01/23/25 03/26/25 dicyclomine 20 mg tablet 20 mg PO BID 01/23/25 03/26/25 budesonide-formoterol HFA 160 1 puff inhalation BID 03/26/25 03/26/25 mcg-4.5 mcg/actuation aerosol inhaler fluticasone fur. 200 mcg-umeclid 1 ea inhalation DAILY 03/26/25 03/26/25 62.5 mcg-vilant 25 mcg inhalat.powder (Trelegy Ellipta) perfluorohexyloctane (PF) 100 % 1 drp EYE-BOTH DAILY PRN dry eye(s) 03/26/25 03/26/25 eye drops (Miebo (PF)) Previous Rx's ?Medication ?Instructions ?Recorded atorvastatin 20 mg tablet (Lipitor) 40 mg (2 x 20 mg) PO BEDTIME #60 12/10/22 tabs prednisone 20 mg tablet 40 mg (2 x 20 mg) PO DAILY #20 tabs 01/21/25 cetirizine 10 mg tablet 10 mg PO DAILY PRN allergy 03/27/25 symptoms #30 tabs doxycycline hyclate 100 mg tablet 100 mg PO BID #20 tabs 03/27/25 Allergies Allergy/AdvReac Type Severity Reaction Status Date / Time Sulfa (Sulfonamide Allergy Verified 03/26/25 22:12 Antibiotics) Patient History Medical History (Updated 03/27/25 @ 01:58 by Kirby Santizo MD) Centrilobular emphysema Shortness of breath Family History (Updated 12/09/22 @ 16:53 by Luis John MD) Other Family history of cerebrovascular accident (CVA) in father Social History household members: spouse alcohol intake: current alcohol intake frequency: 0-2 drinks per day Exam Narrative Exam Narrative: GENERAL: Well-developed patient, in mild distress. Nasal congestion like phonation. HEAD: Atraumatic. Normocephalic. EYES: Pupils equal round and reactive. Extraocular motions intact. No scleral icterus. No injection or drainage. ENT: Nose without bleeding, purulent drainage. Throat without erythema, tonsillar hypertrophy or exudate. Airway patent. NECK: Trachea midline. Non tender CARDIOVASCULAR: Regular rate and rhythm without murmurs, gallops, or rubs. RESPIRATORY: Clear to auscultation. Breath sounds equal bilaterally. No wheezes, rales, or rhonchi. GASTROINTESTINAL: Abdomen soft, non-tender, nondistended. EXTREMITIES: No edema or joint tenderness. BACK: Nontender without deformity or crepitance. No flank tenderness. NEURO: AOx3. Motor functions grossly nonfocal. SKIN: No rash or erythema of visible areas Initial Vital Signs Initial Vital Signs: Vital Signs Temperature 98.1 F 03/26/25 22:12 Pulse Rate 56 L 03/26/25 22:12 Respiratory Rate 15 03/26/25 22:12 Blood Pressure 167/73 H 03/26/25 22:12 Pulse Oximetry 100 03/26/25 22:12 Oxygen Delivery Method Room Air 03/26/25 22:12 Course Orders Ordered: ED Orders 03/26/25 22:17 Complete Blood Count AUTO DIFF Stat Comprehensive Metabolic Panel Stat Lipase Stat Magnesium Stat NT-proBNP (BNP-Adult 18+) Stat PTT Partial Thromboplastin Ulises Stat Prothrombin Time INR Stat Troponin & CK Cardiac Panel Stat 03/26/25 22:43 XR chest 1V Stat EKG-12 Lead Stat Discontinued Medications Aspirin (Aspirin 81 Mg Chew Tab) 324 mg PO NOW ONE Stop: 03/26/25 22:43 Last Admin: 03/26/25 23:09 Dose: Not Given Documented By: Doxycycline Hyclate (Doxycycline Hyclate 100 Mg Tablet) 100 mg PO NOW ONE Stop: 03/27/25 01:51 Last Admin: 03/27/25 02:20 Dose: 100 mg Documented By: FLORINA Vital Signs Vital signs: Vital Signs - 8 hr 03/26/25 22:12 03/26/25 22:15 03/26/25 22:30 Temperature 98.1 F Pulse Rate 56 L 57 L 56 L Respiratory Rate 15 20 21 Blood Pressure 167/73 H 167/73 H 138/65 Pulse Oximetry 100 100 100 Oxygen Delivery Method Room Air Room Air 03/26/25 23:00 03/26/25 23:30 03/27/25 00:15 Temperature Pulse Rate 58 L 59 L 63 Respiratory Rate 20 20 19 Blood Pressure 134/63 148/66 H 145/67 H Pulse Oximetry 99 97 98 Oxygen Delivery Method Room Air Room Air Room Air 03/27/25 02:16 Temperature Pulse Rate 60 Respiratory Rate 20 Blood Pressure 144/89 H Pulse Oximetry 97 Oxygen Delivery Method Room Air MDM - Chest Pain Lab Data Attestation: I reviewed the patient's lab results. Lab results narrative: White blood cell count 4800, hemoglobin 10.9, platelets adequate. Glucose 95. Normal renal function. Normal electrolytes and serum CO2. Mild elevation alkaline phosphatase and AST, ALT and total bilirubin normal. Lipase normal. 03/26/25 22:17 03/26/25 22:17 Labs: Lab Results 03/26/25 Range/Units 22:17 WBC 4.8 (4.5-11.0) X10^3/uL RBC 3.76 L (4.0-5.2) X10^6/uL Hgb 10.9 L (12.0-16.0) g/dL Hct 33.2 L (36-46) % MCV 88.3 (80-100) fL MCH 28.9 (26-34) PG MCHC 32.7 (30-36) % RDW 19.3 H (11.6-14.8) % Plt Count 139 L (150-400) X10^3/uL Neut % (Auto) 57.6 (50-75) % Lymph % (Auto) 30.1 (25-40) % Blaine % (Auto) 8.7 (3-14) % Eos % (Auto) 2.6 (2-4) % Baso % (Auto) 1.0 (0-2) % Neut # (Auto) 2700 (9450-9832) /uL Lymph # (Auto) 1400 (3930-6327) /uL Blaine # (Auto) 400 (0-900) /uL Eos # (Auto) 100 (0-450) /uL Baso # (Auto) 0 (0-100) /uL PT 11.6 (9.4-12.5) SECONDS INR 1.0 (0.9-1.3) APTT 32 (25.1-36.5) SECONDS Sodium 137 (137-145) mmol/L Potassium 3.6 (3.4-5.1) mmol/L Chloride 104 (98-107) mmol/L Carbon Dioxide 25 (22-32) mmol/L BUN 9 (7-17) mg/dL Creatinine 0.65 (0.52-1.04) mg/dL Estimated GFR > 60 (>60) mL/min BUN/Creatinine Ratio 13.8 (6-22) Glucose 95 (70-99) mg/dL Calcium 8.9 (8.4-10.2) mg/dL Magnesium 1.9 (1.6-2.3) mg/dL Total Bilirubin 0.8 (0.2-1.3) mg/dL AST 59 H (14-36) IU/L ALT 31 (<35) IU/L Alkaline Phosphatase 345 H (38-126) U/L Total Creatine Kinase 33 (30-135) U/L Troponin I < 0.012 (0.01-0.034) ng/mL NT-Pro-B Natriuret Pep 80 (<450) pg/mL Total Protein 6.7 (6.3-8.2) g/dL Albumin 3.8 (3.5-5.0) g/dL Globulin 2.9 (1.7-4.1) g/dL Albumin/Globulin Ratio 1.3 (1.0-2.8) Lipase 116 (23-300) U/L ECG Data Attestation: I personally reviewed and interpreted this ECG as follows: Interpretation: 2225, sinus bradycardia with ventricular rate 56, no obvious ST segment elevation or depression changes. PA 208, QRS 84, QTC 403. MDM Narrative Medical decision making narrative: 79-year-old female with ongoing cough, history of former smoker, on topical inhaled steroids and bronchodilator inhalers, previous/recent oral prednisone steroid pulse doses, does not want systemic steroids. Chest x-ray no acute changes. See radiology report. EKG without obvious ischemic changes, sinus rhythm. Troponin negative. Lab date: White blood cell count 4800, hemoglobin 10.9, platelets adequate. Glucose 95. Normal renal function. Normal electrolytes and serum CO2. Mild elevation alkaline phosphatase and AST, ALT and total bilirubin normal. Lipase normal. Electrolytes unremarkable. Serum CO2 normal. Patient we would like a course of antibiotic, does not want any further steroids. Does not want further breathing treatments. She would like to go home. We will give oral course doxycycline, prescription sent to her pharmacy, first oral dose now. She will follow up with her credit support specialist. Encouraged to continue her topical inhaled steroid and bronchodilators for now. Discharged home per patient request. Discharge Plan Departure Patient Disposition: Home Clinical Impression: Atypical pneumonia, History of emphysema Activity Restrictions/Additional Instructions: Ongoing cough, history of emphysema, consultation with pulmonology, prior/frequent courses of oral prednisone steroid that do not seem to be helping. Continue use of topical inhaled steroid and inhaled bronchodilators. Still having ongoing cough. Nasal congestion sounding phonation. No recent antibiotics, prior response to antibiotic, and interest in course of antibiotics to use. Oral dose of doxycycline given, prescription sent to your pharmacy for further course of doxycycline, consider coverage for atypical pneumonia. Chest x-ray without obvious definite infiltrate per radiology reading. EKG and blood testing results unremarkable. Consider trial of non sedating oral antihistamine as well, if allergic etiology might be a component of your ongoing cough. You did not want any systemic oral steroid prescribed. Follow up with your credit support specialist as prescribed. Follow up with your regular doctor later this week early next week to reassess symptoms and response to treatment. Return to this/nearest emergency department for any change worsening symptoms or any concerns prior. Prescriptions: New doxycycline hyclate 100 mg tablet 100 mg PO BID Qty: 20 0RF cetirizine 10 mg tablet 10 mg PO DAILY PRN (Reason: allergy symptoms) Qty: 30 0RF No Action ALBUTEROL (PROVENTIL INHALER) 0.09 mg IH PRN Qty: 0 trazodone 100 MG tablet 150 mg PO HS Qty: 0 ibuprofen 800 MG tablet 800 mg PO PRN Qty: 0 atorvastatin [Lipitor] 20 mg Tablet 40 mg PO BEDTIME Qty: 60 2RF acyclovir 400 mg tablet 400 mg PO DAILY dicyclomine 20 mg tablet 20 mg PO BID budesonide-formoterol 160-4.5 mcg/actuation HFA aerosol inhaler 1 puff INHALATION BID Trelegy Ellipta 200-62.5-25 mcg blister with device 1 ea inhalation DAILY Miebo (PF) 100 % drops 1 drp EYE-BOTH DAILY PRN (Reason: dry eye(s)) prednisone 20 mg tablet 40 mg PO DAILY Qty: 20 0RF Referrals: Frank Mcarthur MD [Primary Care Provider, Family Practice] Stand Alone Forms: Patient Portal/API
[2025-03-27 02:16] VITALS: BP 144/89; PULSE 60; RESP 20; O2SAT 97
[2025-03-27] MEDS: DOXYCYCLINE HYCLATE 100 MG TABLET PO (02:20)
== END 2025-03-27 02:40 | disposition home or self-care (01) ==
PROVIDERS: Emergency Provider Emergency Medicine; PCP Family Medicine
DX: J18.9 Pneumonia, unspecified organism (principal); R07.9 Chest pain, unspecified; Z87.891 Personal history of nicotine dependence; Z87.09 Personal history of other diseases of the respiratory system
CPT/HCPCS: 36415; 71045; 80053; 82550; 83690; 83735; 83880; 84484; 85025; 85610; 85730; 93005; 93010; 99284

== ENCOUNTER → 2025-06-04 09:04 | Outpatient (CLI) | payer MEDICARE, OTHER, SELFPAY ==
[2022-12-09 17:30] VITALS: BMI 25.7
--- NOTE | 2025-06-05 17:13 | DI.NM.S_ITS ---
DATE OF SERVICE: 06/04/2025 PHARMACOLOGICAL PERFUSION STUDY INDICATIONS: Chest pain, shortness of breath, history of atherosclerotic vascular disease. RADIOPHARMACEUTICAL: 26.4 millicurie technetium-99m Myoview IV was injected at stress and 25.9 millicurie technetium-99m Myoview IV was injected at rest. CARDIAC STRESS: The patient underwent IV Lexiscan perfusion study under the supervision of an attending staff using standard intravenous Lexiscan protocol. Resting blood pressure 115/68 with heart rate 71. Rhythm is sinus. During stress, no convincing ischemic changes seen. The patient remained hemodynamically stable. After Lexiscan injection, the patient had chest pain and significant dyspnea as well as left arm pain. The patient was given 50 mg dose of aminophylline with slow response and given second dose of 50 mg of intravenous aminophylline and slowly got recovered. No ischemic EKG changes at that time. No significant arrhythmias. RAW DATA: There is significant hot spot with gut shadow encroaching the apex of the heart. Heart is vertical. GATED STUDY: Stress LV ejection fraction 65% without any obvious wall motion abnormalities. TID ratio 1.31 with pharmacological perfusion study. Resting end-diastolic volume 79 mL. Lung/heart ratio 0.33, which is within normal limits. Visually, I do not see any significant transient ischemic dilatation. MYOCARDIAL PERFUSION SCAN: Stress supine and resting supine and stress prone images were compared to each other. Resting supine images revealed moderate size, moderate to severely decreased perfusion of distal anterior wall extending into the anterior apex. Stress supine images revealed moderate size, moderate to severely decreased perfusion of distal anterior wall extending into the anterior apex. Those defects were significantly resolved during stress prone images suggestive of tissue attenuation artifact. On stress prone images. No convincing ischemia infarction. CONCLUSION: I will call this study likely a normal myocardial perfusion study with evidence of tissue attenuation artifact which got resolved during stress prone images as stated above. On raw data, there is a hot spot with increased subdiaphragmatic activity likely a gut shadow encroaching the apex of the heart. Heart is vertical. Preserved LV function. No regional wall motion abnormality. After Lexiscan, the patient had chest pain and shortness of breath, however, no obvious ischemic changes with slow response to intravenous aminophylline. Overall, low-risk myocardial perfusion scan. Correlate clinically. Darshana Rice - MICROBIOLOGY QUALITY CONTROL TECHNICIAN/fn/DIVISION [employer] ENGINEER doc#: [id number]/job#: [id number] dd: 06/05/2025 16:47:00 dt: 06/05/2025 16:53:00 DICTATING MD/COPIES TO: Melvin Claire MD COPIES MNE: ELLEN;
== END ==
PROVIDERS: PCP Internal Medicine; Referring Provider Internal Medicine Cardiovascular Disease; Visit Provider Internal Medicine Cardiovascular Disease
DX: R07.9 Chest pain, unspecified (principal)
CPT/HCPCS: 78452; 93017; A9502; J2785